=== PATIENT | female | born 1950 | race Caucasian/White ===

== ENCOUNTER 2016-07-11 12:20 | Inpatient (IN) | payer OTHER ==
[~2016-07-11] VITALS: Ht 165.1 cm; Wt 76.4 kg
[~2016-07-11 12:20] MED LIST: AVAPRO75 MG PO; CARTIA XT240 MG PO; COMPAZINE10 MG PO; DULERA 100 MCG/13 GM IH; FEMARA2.5 MG PO; LOTEMAX5 GM BOTH EYES; ONDANSETRON HCL8 MG PO; OXYCODONE-ACET1 EACH PO; PANTOPRAZOLE SO40 MG PO; PROVERA,CYCRIN10 MG PO; PYRIDIUM100 MG PO; SYNTHROID100 MCG PO; ZOLOFT100 MG PO
[2016-07-11 13:38] LABS: HEMATOCRIT 25.4 % (36.0-46.0); MCH 25.3 PG (29.0-34.0); MCHC 31.9 G/DL (30.0-36.0); MCV 79.4 FL (83-99); RBC DIS.WIDTH-CV 21.6 % (11.8-14.6); RBC DIS.WIDTH-SD 55.1 % (39-53)
[2016-07-11 13:49] LABS: D-DIMER ELISA 3.61 mg/L FEU (< 0.57)
[2016-07-11 13:50] LABS: CHLORIDE 105 mEq/L (99-109); POTASSIUM 3.7 mEq/L (3.7-5.4); SODIUM 139 mEq/L (136-147)
[2016-07-11 13:52] LABS: GLUCOSE 127 mg/dL (70-99)
[2016-07-11 13:53] LABS: ANION GAP 13 MEQ/L (2-14)
[2016-07-11 13:54] LABS: TOTAL BILIRUBIN 0.1 mg/dL (0.0-1.0)
[2016-07-11 13:55] LABS: ALKALINE PHOSPHATASE 117 IU/L (3-129)
[2016-07-11 13:56] LABS: GFR ESTIMATE (CALCULATED) 22 mL/min/
[2016-07-11 13:57] LABS: UREA NITROGEN (BUN) 33 mg/dL (9-23)
[2016-07-11 14:01] LABS: TROP-I INTERPRETATION NEGATIVE; TROPONIN-I 0.08 ng/mL (0.0-0.30)
[2016-07-11 14:04] LABS: WHITE BLOOD COUNT 14.9 K/uL (4.1-10.2)
[2016-07-11 14:07] LABS: BASOPHIL COUNT 0.1 K/uL (0-0.1); EOSINOPHIL (%) 0.1 % (0-5); IMMATURE GRANULOCYTE (%) 3.1 % (0.0-0.7); IMMATURE GRANULOCYTE COUNT 0.4 K/uL; LYMPHOCYTE COUNT 1.1 K/uL (1.0-2.8); MONOCYTE COUNT 1.5 K/uL (0-0.8); NEUTROPHIL (%) 77.1 % (45-76); NEUTROPHIL COUNT 10.6 K/uL (1.8-6.4); NRBC (%) 8.3 /100 WBC (0-0)
[2016-07-11 14:37] LABS: HEMATOLOGY COMMENT 1 SMEAR COMPATIBLE; MEAN PLAT.VOLUME 9.9 uM^3 (9.5-12.4); PLATELET CLUMPS PRESENT - PLATELET COUNT APPEARS INCREASED; USER ID TLW
[2016-07-11 14:55] LABS: PLATELET COUNT UNABLE TO REPORT K/uL (156-360)
[2016-07-11 16:54] LABS: INTER. NORMALIZED RATIO 1.2; PROTHROMBIN TIME 11.8 (9.2-11.2); PTT 28.7 (25-32)
[2016-07-11 18:16] VITALS: BP 101/54
[2016-07-11 21:00] VITALS: BP 108/59
[2016-07-11 21:49] LABS: INFLUENZA A VIRAL ANTIGEN NEGATIVE; INFLUENZA B VIRAL ANTIGEN NEGATIVE
[2016-07-11 23:58] VITALS: BP 104/56
[2016-07-12 05:00] VITALS: BP 128/66
[2016-07-12 06:50] LABS: HEMATOCRIT 23.9 % (36.0-46.0); MCH 25.2 PG (29.0-34.0); MCHC 31.4 G/DL (30.0-36.0); MCV 80.2 FL (83-99); RBC DIS.WIDTH-CV 21.9 % (11.8-14.6); RBC DIS.WIDTH-SD 59.9 % (39-53); RED BLOOD COUNT 2.98 M/uL (3.80-5.20); WHITE BLOOD COUNT 14.2 K/uL (4.1-10.2)
[2016-07-12 07:24] LABS: INTER. NORMALIZED RATIO 1.1; PROTHROMBIN TIME 11.7 (9.2-11.2); PTT 40.3 (25-32)
[2016-07-12 07:28] LABS: ANION GAP 11 MEQ/L (2-14); CHLORIDE 105 MEQ/L (99-109); GFR ESTIMATE (CALCULATED) 25 mL/min/; SAMPLE HEMOLYSIS CHECK 0; SAMPLE ICTERIC CHECK 0; SAMPLE LIPEMIA CHECK 0; SODIUM 140 MEQ/L (136-147); UREA NITROGEN (BUN) 33 mg/dL (9-23)
[2016-07-12 07:39] LABS: GLUCOSE 93 mg/dL (70-99); POTASSIUM 4.5 MEQ/L (3.7-5.4)
[2016-07-12 07:46] LABS: ADD MIUA? YES; BILIRUBIN NEGATIVE; BLOOD MODERATE; COLOR YELLOW ((YELLOW)); GLUCOSE (STRIP) NEGATIVE; KETONES NEGATIVE; LEUKOCYTES LARGE; NITRITE NEGATIVE; PROTEIN (STRIP) NEGATIVE; SPECIFIC GRAVITY 1.013 (1.000-1.030); UROBILINOGEN 0.2 MG/DL (0.2-1.0)
[2016-07-12 08:03] LABS: HEMATOLOGY COMMENT 1 SMEAR COMPATIBLE
[2016-07-12 08:04] LABS: PLATELET COUNT UNABLE TO REPORT K/uL (156-360)
[2016-07-12 08:22] VITALS: BP 136/67
[2016-07-12 08:35] LABS: BACTERIA 1+ /HPF; EPITHELIAL CELLS 1+ /HPF; MUCUS 2+ /LPF; RED BLOOD CELLS 20-30 /HPF (0-5); UCUL ADDED? YES; WHITE BLOOD CELLS TNTC /HPF (0-5); WHITE BLOOD CELLS CLUMP MANY /HPF (0-5)
[2016-07-12 11:42] VITALS: BP 116/58
[2016-07-12 17:44] VITALS: BP 124/63
[2016-07-12 20:21] VITALS: BP 120/67
[2016-07-12 23:35] VITALS: BP 128/70
[2016-07-13 04:10] VITALS: BP 121/74
[2016-07-13 08:18] LABS: HEMATOCRIT 25.2 % (36.0-46.0); MCH 24.6 PG (29.0-34.0); MCHC 30.2 G/DL (30.0-36.0); MCV 81.6 FL (83-99); RBC DIS.WIDTH-CV 22.6 % (11.8-14.6); RBC DIS.WIDTH-SD 61.7 % (39-53); RED BLOOD COUNT 3.09 M/uL (3.80-5.20); WHITE BLOOD COUNT 12.7 K/uL (4.1-10.2)
[2016-07-13 08:25] VITALS: BP 138/83
[2016-07-13 08:46] LABS: ANION GAP 9 MEQ/L (2-14); CHLORIDE 107 MEQ/L (99-109); GLUCOSE 88 mg/dL (70-99); SAMPLE HEMOLYSIS CHECK 1; SAMPLE ICTERIC CHECK 0; SAMPLE LIPEMIA CHECK 0; SODIUM 140 MEQ/L (136-147); UREA NITROGEN (BUN) 25 mg/dL (9-23)
[2016-07-13 08:49] LABS: GFR ESTIMATE (CALCULATED) 34 mL/min/; POTASSIUM 4.2 MEQ/L (3.7-5.4)
[2016-07-13 09:16] LABS: PLATELET COUNT UNABLE TO REPORT K/uL (156-360)
[2016-07-13 12:23] VITALS: BP 135/82
[2016-07-13 16:28] VITALS: BP 117/57
[2016-07-13 20:01] VITALS: BP 156/67
[2016-07-14] VITALS (7 sets, daily range): BP systolic 113–131; BP diastolic 56–69
[2016-07-14 06:54] LABS: HEMATOCRIT 23.8 % (36.0-46.0); MCH 24.2 PG (29.0-34.0); MCHC 30.3 G/DL (30.0-36.0); MCV 79.9 FL (83-99); RBC DIS.WIDTH-CV 23.2 % (11.8-14.6); RBC DIS.WIDTH-SD 61.6 % (39-53); RED BLOOD COUNT 2.98 M/uL (3.80-5.20); WHITE BLOOD COUNT 12.8 K/uL (4.1-10.2)
[2016-07-14 07:27] LABS: ANION GAP 10 MEQ/L (2-14); CHLORIDE 105 MEQ/L (99-109); GFR ESTIMATE (CALCULATED) 43 mL/min/; GLUCOSE 81 mg/dL (70-99); SAMPLE HEMOLYSIS CHECK 1; SAMPLE ICTERIC CHECK 0; SAMPLE LIPEMIA CHECK 0; SODIUM 138 MEQ/L (136-147); UREA NITROGEN (BUN) 22 mg/dL (9-23)
[2016-07-14 07:46] LABS: HEMATOLOGY COMMENT 1 REV
[2016-07-14 07:57] LABS: PLATELET COUNT 1101 K/uL (156-360)
[2016-07-14 08:07] LABS: POTASSIUM 4.4 MEQ/L (3.7-5.4)
[2016-07-14 08:44] LABS: HEMATOCRIT 23.5 % (36.0-46.0); MCH 25.4 PG (29.0-34.0); MCHC 31.1 G/DL (30.0-36.0); MCV 81.9 FL (83-99); RBC DIS.WIDTH-CV 22.8 % (11.8-14.6); RBC DIS.WIDTH-SD 64.3 % (39-53); RED BLOOD COUNT 2.87 M/uL (3.80-5.20)
[2016-07-14 09:03] LABS: INTER. NORMALIZED RATIO 1.3; PROTHROMBIN TIME 13.7 (9.2-11.2); PTT 33.7 (25-32)
[2016-07-14 09:08] LABS: TOTAL BILIRUBIN 0.3 MG/DL (0.0-1.0)
[2016-07-14 09:16] LABS: ADD MIUA? YES; BILIRUBIN NEGATIVE; BLOOD LARGE; COLOR YELLOW ((YELLOW)); GLUCOSE (STRIP) NEGATIVE; KETONES NEGATIVE; LEUKOCYTES LARGE; NITRITE NEGATIVE; PROTEIN (STRIP) 30; SPECIFIC GRAVITY 1.009 (1.000-1.030); UROBILINOGEN 0.2 MG/DL (0.2-1.0)
[2016-07-14 09:37] LABS: HEMATOLOGY COMMENT 1 REV
[2016-07-14 09:38] LABS: MEAN PLAT.VOLUME 9.7 uM^3 (9.5-12.4); PLATELET COUNT 1050 K/uL (156-360)
[2016-07-14 10:03] LABS: BACTERIA 1+ /HPF; EPITHELIAL CELLS NONE SEEN /HPF; MUCUS 1+ /LPF; RED BLOOD CELLS TNTC /HPF (0-5); WHITE BLOOD CELLS TNTC /HPF (0-5); WHITE BLOOD CELLS CLUMP MANY /HPF (0-5)
[2016-07-15 03:50] VITALS: BP 119/59
[2016-07-15 06:33] LABS: HEMATOCRIT 23.6 % (36.0-46.0); MCH 24.1 PG (29.0-34.0); MCHC 29.7 G/DL (30.0-36.0); MCV 81.4 FL (83-99); NRBC (%) 1.2 /100 WBC (0-0); RBC DIS.WIDTH-CV 22.8 % (11.8-14.6); WHITE BLOOD COUNT 11.7 K/uL (4.1-10.2)
[2016-07-15 07:11] LABS: ALKALINE PHOSPHATASE 94 IU/L (3-129); ANION GAP 7 MEQ/L (2-14); CHLORIDE 104 MEQ/L (99-109); GFR ESTIMATE (CALCULATED) 48 mL/min/; GLUCOSE 84 mg/dL (70-99); POTASSIUM 4.1 MEQ/L (3.7-5.4); SAMPLE HEMOLYSIS CHECK 0; SAMPLE ICTERIC CHECK 0; SAMPLE LIPEMIA CHECK 0; SODIUM 136 MEQ/L (136-147); UREA NITROGEN (BUN) 22 mg/dL (9-23)
[2016-07-15 07:13] LABS: TOTAL BILIRUBIN 0.2 MG/DL (0.0-1.0)
[2016-07-15 07:57] LABS: BASOPHIL COUNT 0.1 K/uL (0-0.1); EOSINOPHIL (%) 1.5 % (0-5); EOSINOPHIL COUNT 0.2 K/uL (0-0.3); HEMATOLOGY COMMENT 1 SMEAR COMPATIBLE; IMMATURE GRANULOCYTE (%) 2.1 % (0.0-0.7); IMMATURE GRANULOCYTE COUNT 0.2 K/uL; LYMPHOCYTE COUNT 1.9 K/uL (1.0-2.8); MEAN PLAT.VOLUME 9.8 uM^3 (9.5-12.4); MONOCYTE (%) 13.5 % (3-12); MONOCYTE COUNT 1.6 K/uL (0-0.8); NEUTROPHIL (%) 66.1 % (45-76); NEUTROPHIL COUNT 7.7 K/uL (1.8-6.4); PLAT.SUFFICIENCY INCREASED; USER ID MCB
[2016-07-15 07:58] LABS: PLATELET COUNT 1033 K/uL (156-360)
[2016-07-15 08:00] VITALS: BP 125/63
[2016-07-15 12:50] LABS: HEMATOCRIT 26.3 % (36.0-46.0); MCV 81.2 FL (83-99)
[2016-07-15 13:01] VITALS: BP 130/66
[2016-07-15 16:38] VITALS: BP 101/52
[2016-07-15 20:00] VITALS: BP 107/58
[2016-07-16] VITALS (14 sets, daily range): BP systolic 95–140; BP diastolic 50–74
[2016-07-16 06:46] LABS: HEMATOCRIT 23.5 % (36.0-46.0); MCH 24.6 PG (29.0-34.0); MCHC 30.2 G/DL (30.0-36.0); MCV 81.3 FL (83-99); RBC DIS.WIDTH-CV 23.3 % (11.8-14.6); RBC DIS.WIDTH-SD 64.9 % (39-53); RED BLOOD COUNT 2.89 M/uL (3.80-5.20); WHITE BLOOD COUNT 13.2 K/uL (4.1-10.2)
[2016-07-16 07:09] LABS: ANION GAP 9 MEQ/L (2-14); C-REACTIVE PROTEIN 52.6 MG/L (0-10); CHLORIDE 105 MEQ/L (99-109); GFR ESTIMATE (CALCULATED) 37 mL/min/; GLUCOSE 87 mg/dL (70-99); POTASSIUM 4.4 MEQ/L (3.7-5.4); SAMPLE HEMOLYSIS CHECK 0; SAMPLE ICTERIC CHECK 0; SAMPLE LIPEMIA CHECK 0; SODIUM 139 MEQ/L (136-147); UREA NITROGEN (BUN) 23 mg/dL (9-23)
[2016-07-16 08:05] LABS: ADD MIUA? YES; BILIRUBIN NEGATIVE; BLOOD LARGE; COLOR YELLOW ((YELLOW)); GLUCOSE (STRIP) NEGATIVE; KETONES NEGATIVE; LEUKOCYTES MODERATE; NITRITE NEGATIVE; PROTEIN (STRIP) 30; SPECIFIC GRAVITY 1.009 (1.000-1.030); UROBILINOGEN 0.2 MG/DL (0.2-1.0)
[2016-07-16 08:08] LABS: MEAN PLAT.VOLUME 9.6 uM^3 (9.5-12.4)
[2016-07-16 08:14] LABS: PLATELET COUNT 1008 K/uL (156-360)
[2016-07-16 09:03] LABS: BACTERIA 1+ /HPF; CASTS NONE SEEN /LPF; CRYSTALS NONE SEEN; EPITHELIAL CELLS RARE /HPF; MUCUS RARE /LPF; RED BLOOD CELLS TNTC /HPF (0-5); UCUL ADDED? NO; WHITE BLOOD CELLS 30-40 /HPF (0-5)
[2016-07-17 04:09] VITALS: BP 130/78
[2016-07-17 07:00] LABS: HEMATOCRIT 28.3 % (36.0-46.0); MCH 26.8 PG (29.0-34.0); MCHC 32.2 G/DL (30.0-36.0); MCV 83.5 FL (83-99); MEAN PLAT.VOLUME 9.7 uM^3 (9.5-12.4); PLATELET COUNT 845 K/uL (156-360); RBC DIS.WIDTH-SD 61.9 % (39-53); RED BLOOD COUNT 3.39 M/uL (3.80-5.20); WHITE BLOOD COUNT 13.9 K/uL (4.1-10.2)
[2016-07-17 07:10] VITALS: BP 126/66
[2016-07-17 07:20] LABS: ANION GAP 9 MEQ/L (2-14); CHLORIDE 106 MEQ/L (99-109); GFR ESTIMATE (CALCULATED) 40 mL/min/; GLUCOSE 88 mg/dL (70-99); POTASSIUM 4.2 MEQ/L (3.7-5.4); SAMPLE HEMOLYSIS CHECK 0; SAMPLE ICTERIC CHECK 0; SAMPLE LIPEMIA CHECK 0; SODIUM 141 MEQ/L (136-147); UREA NITROGEN (BUN) 19 mg/dL (9-23)
[2016-07-17 11:17] VITALS: BP 128/67
[2016-07-17 16:12] VITALS: BP 126/68
[2016-07-17 19:16] VITALS: BP 120/59
[2016-07-17 23:22] VITALS: BP 137/72
[2016-07-18 04:41] VITALS: BP 141/75
[2016-07-18 06:44] LABS: HEMATOCRIT 28.8 % (36.0-46.0); MCHC 30.9 G/DL (30.0-36.0); MCV 84.2 FL (83-99); MEAN PLAT.VOLUME 9.9 uM^3 (9.5-12.4); NRBC (%) 0.4 /100 WBC (0-0); PLATELET COUNT 893 K/uL (156-360); RBC DIS.WIDTH-CV 21.9 % (11.8-14.6); RBC DIS.WIDTH-SD 66.2 % (39-53); RED BLOOD COUNT 3.42 M/uL (3.80-5.20)
[2016-07-18 07:14] LABS: ANION GAP 10 MEQ/L (2-14); CHLORIDE 107 MEQ/L (99-109); GFR ESTIMATE (CALCULATED) 37 mL/min/; GLUCOSE 79 mg/dL (70-99); POTASSIUM 4.4 MEQ/L (3.7-5.4); SAMPLE HEMOLYSIS CHECK 0; SAMPLE ICTERIC CHECK 0; SAMPLE LIPEMIA CHECK 0; SODIUM 142 MEQ/L (136-147); UREA NITROGEN (BUN) 17 mg/dL (9-23)
[2016-07-18 07:15] VITALS: BP 146/76
[2016-07-18 07:34] LABS: BASOPHIL COUNT 0.1 K/uL (0-0.1); EOSINOPHIL (%) 2.7 % (0-5); EOSINOPHIL COUNT 0.4 K/uL (0-0.3); IMMATURE GRANULOCYTE (%) 0.8 % (0.0-0.7); IMMATURE GRANULOCYTE COUNT 0.1 K/uL; LYMPHOCYTE COUNT 2.1 K/uL (1.0-2.8); MONOCYTE (%) 12.6 % (3-12); MONOCYTE COUNT 1.6 K/uL (0-0.8); NEUTROPHIL (%) 66.8 % (45-76); NEUTROPHIL COUNT 8.7 K/uL (1.8-6.4)
[2016-07-18 08:10] LABS: HEMATOLOGY COMMENT 1 SMEAR COMPATIBLE; PLAT.SUFFICIENCY INCREASED; USER ID STC
[2016-07-18 11:43] VITALS: BP 139/84
[2016-07-18 16:06] VITALS: BP 140/75
[2016-07-18 19:30] VITALS: BP 120/59
[2016-07-18 23:30] VITALS: BP 138/71
[2016-07-19] VITALS (18 sets, daily range): BP systolic 65–140; BP diastolic 38–73
[2016-07-19 06:26] LABS: HEMATOCRIT 30.4 % (36.0-46.0); MCHC 31.6 G/DL (30.0-36.0); MCV 85.6 FL (83-99); PLATELET COUNT 850 K/uL (156-360); RBC DIS.WIDTH-CV 22.6 % (11.8-14.6); RBC DIS.WIDTH-SD 69.4 % (39-53); RED BLOOD COUNT 3.55 M/uL (3.80-5.20); WHITE BLOOD COUNT 12.1 K/uL (4.1-10.2)
[2016-07-19 12:54] LABS: C DIFF TOXIN NEGATIVE (NEGATIVE); PROBE CHECK PASS; SPECIMEN PROCESSING CONTROL PASS
[2016-07-19 16:54] LABS: HEMATOCRIT 24.3 % (36.0-46.0); MCV 86.5 FL (83-99)
[2016-07-19 17:08] LABS: TROP-I INTERPRETATION NEGATIVE; TROPONIN-I 0.02 ng/mL (0.0-0.30)
[2016-07-19 22:28] LABS: FIBRINOGEN 375 MG/DL (160-450); INTER. NORMALIZED RATIO 1.2; PROTHROMBIN TIME 12.3 (9.2-11.2); PTT 29.3 (25-32)
[2016-07-19 23:28] LABS: METH RESISTANT S AUREUS PCR NEGATIVE (NEGATIVE)
[2016-07-19 23:30] LABS: PROBE CHECK PASS; SPECIMEN PROCESSING CONTROL PASS
[2016-07-20] VITALS (25 sets, daily range): BP systolic 75–117; BP diastolic 44–94
[2016-07-20 06:49] LABS: FIBRINOGEN 437 MG/DL (160-450); INTER. NORMALIZED RATIO 1.1; PROTHROMBIN TIME 11.3 (9.2-11.2); PTT 28.7 (25-32)
[2016-07-20 06:59] LABS: ANION GAP 13 MEQ/L (2-14); CHLORIDE 106 MEQ/L (99-109); GFR ESTIMATE (CALCULATED) 22 mL/min/; POTASSIUM 4.6 MEQ/L (3.7-5.4); SAMPLE HEMOLYSIS CHECK 0; SAMPLE ICTERIC CHECK 0; SAMPLE LIPEMIA CHECK 0; SODIUM 140 MEQ/L (136-147)
[2016-07-20 07:01] LABS: GLUCOSE 165 mg/dL (70-99); UREA NITROGEN (BUN) 28 mg/dL (9-23)
[2016-07-20 08:21] LABS: EOSINOPHIL (%) 0 % (0-5); HEMATOLOGY COMMENT 1 SMEAR COMPATIBLE; IMMATURE GRANULOCYTE (%) 1.5 % (0.0-0.7); IMMATURE GRANULOCYTE COUNT 0.4 K/uL; MCH 28.1 PG (29.0-34.0); MCHC 32.6 G/DL (30.0-36.0); MEAN PLAT.VOLUME 10.4 uM^3 (9.5-12.4); MONOCYTE (%) 4.6 % (3-12); MONOCYTE COUNT 1.1 K/uL (0-0.8); NEUTROPHIL (%) 85.4 % (45-76); NEUTROPHIL COUNT 20.3 K/uL (1.8-6.4); NRBC (%) 0.3 /100 WBC (0-0); PLAT.SUFFICIENCY ADEQUATE; RBC DIS.WIDTH-CV 16.9 % (11.8-14.6); RBC DIS.WIDTH-SD 50.3 % (39-53); RED BLOOD COUNT 4.42 M/uL (3.80-5.20); WHITE BLOOD COUNT 23.8 K/uL (4.1-10.2)
[2016-07-26 11:55] LABS: POC NON-PRINT COM 1 ND
== END 2016-07-20 10:47 | disposition short-term general hospital (02) | DRG 175 ==
LOC: EME → EDBD 12:20 → EME 12:20 → 4WEST 17:10 → EDOF 17:10 → 4SOUTH 17:10 → 4EAST 07-14 14:59 → 4WEST 07-19 21:18
PROVIDERS: Emergency Medicine; Internal Medicine; Internal Medicine Hematology & Oncology; Internal Medicine Medical Oncology; Obstetrics & Gynecology; Physician Assistant; Student in an Organized Health Care Education/Training Program
PROC: 30233N1 Transfusion of Nonautologous Red Blood Cells into Peripheral Vein, Percutaneous Approach (ICD-10-PCS; principal; 2016-07-16)
PROC: 30233K1 Transfusion of Nonautologous Frozen Plasma into Peripheral Vein, Percutaneous Approach (ICD-10-PCS; 2016-07-20)
DX: I26.99 Other pulmonary embolism without acute cor pulmonale (principal); R57.8 Other shock; K66.1 Hemoperitoneum; M79.81 Nontraumatic hematoma of soft tissue; R31.9 Hematuria, unspecified; T45.515A Adverse effect of anticoagulants, initial encounter; I82.411 Acute embolism and thrombosis of right femoral vein; I82.811 Embolism and thrombosis of superficial veins of right lower extremity; N17.9 Acute kidney failure, unspecified; E87.2 Acidosis; C77.3 Secondary and unspecified malignant neoplasm of axilla and upper limb lymph nodes; C50.912 Malignant neoplasm of unspecified site of left female breast; C55 Malignant neoplasm of uterus, part unspecified; J18.9 Pneumonia, unspecified organism; N39.0 Urinary tract infection, site not specified; B96.5 Pseudomonas (aeruginosa) (mallei) (pseudomallei) as the cause of diseases classified elsewhere; J45.909 Unspecified asthma, uncomplicated; E03.9 Hypothyroidism, unspecified; F32.9 Major depressive disorder, single episode, unspecified; I12.9 Hypertensive chronic kidney disease with stage 1 through stage 4 chronic kidney disease, or unspecified chronic kidney disease; N18.1 Chronic kidney disease, stage 1; D64.9 Anemia, unspecified; D47.3 Essential (hemorrhagic) thrombocythemia; Z85.71 Personal history of Hodgkin lymphoma; Z91.041 Radiographic dye allergy status
CPT/HCPCS: 71010; 71020; 71250; 74176; 76770; 78582; 80048; 80053; 81003; 82247; 82272; 82570; 82728; 83605; 83615; 83880; 84145 90; 84300; 84484; 85014; 85018; 85025; 85025 91; 85027; 85379; 85384; 85610; 85730; 86140; 86850; 86900; 86901; 86920; 87040; 87070; 87077; 87086; 87186; 87205; 87493; 87502; 87641; 93005; 93306; 93970; 93971; 94640; 94640 76; 94760; 94799; 97530 GO; 99281; 99285; A9540; A9567; C9113; G0463 25; J0456; J0696; J1170; J1650; J1940; J2270; J2405; J2543; J7030; J7040; J7050; J7120; P9016; P9017; P9045

== ENCOUNTER 2016-08-08 15:29 | Emergency (ER) | payer OTHER ==
[~2016-08-08] VITALS: Ht 165.1 cm; Wt 96.0 kg
[2016-08-08 19:39] LABS: HEMATOCRIT 33.8 % (36.0-46.0); MCH 31.9 PG (29.0-34.0); MCHC 31.7 G/DL (30.0-36.0); RBC DIS.WIDTH-CV 21.8 % (11.8-14.6); RBC DIS.WIDTH-SD 79.7 % (39-53)
[2016-08-08 19:41] LABS: EOSINOPHIL (%) 3.7 % (0-5); EOSINOPHIL COUNT 0.3 K/uL (0-0.3); IMMATURE GRANULOCYTE (%) 0.4 % (0.0-0.7); INSTRUMENT ABS NEUTROPHIL CT 4.6 K/uL; LYMPHOCYTE COUNT 3.5 K/uL (1.0-2.8); MCV 100.9 FL (83-99); MONOCYTE COUNT 0.7 K/uL (0-0.8); NEUTROPHIL (%) 50.1 % (45-76); NEUTROPHIL COUNT 4.6 K/uL (1.8-6.4); RED BLOOD COUNT 3.35 M/uL (3.80-5.20); WHITE BLOOD COUNT 9.2 K/uL (4.1-10.2)
[2016-08-08 19:52] LABS: INTER. NORMALIZED RATIO 1.1; PROTHROMBIN TIME 10.7 (9.2-11.2); PTT 28.9 (25-32)
[2016-08-08 19:53] LABS: CHLORIDE 102 mEq/L (99-109); POTASSIUM 3.8 mEq/L (3.7-5.4); SODIUM 136 mEq/L (136-147)
[2016-08-08 19:55] LABS: GLUCOSE 93 mg/dL (70-99)
[2016-08-08 19:57] LABS: ANION GAP 13 MEQ/L (2-14); TOTAL BILIRUBIN 0.9 mg/dL (0.0-1.0)
[2016-08-08 19:59] LABS: ALKALINE PHOSPHATASE 121 IU/L (3-129); GFR ESTIMATE (CALCULATED) 48 mL/min/
[2016-08-08 20:00] LABS: UREA NITROGEN (BUN) 14 mg/dL (9-23)
[2016-08-08 20:28] LABS: PLATELET COUNT 466 K/uL (156-360)
[2016-08-08 21:55] LABS: ADD MIUA? YES; BILIRUBIN NEGATIVE; BLOOD LARGE; COLOR YELLOW ((YELLOW)); GLUCOSE (STRIP) NEGATIVE; KETONES NEGATIVE; LEUKOCYTES MODERATE; NITRITE NEGATIVE; PROTEIN (STRIP) 100; UROBILINOGEN 0.2 MG/DL (0.2-1.0)
[2016-08-08 21:56] LABS: BACTERIA 1+ /HPF; EPITHELIAL CELLS 1+ /HPF; MUCUS NONE SEEN /LPF; RED BLOOD CELLS TNTC /HPF (0-5); UCUL ADDED? NO
[2016-08-09] MEDS ORDERED: KEFLEX500 MG PO (00:13)
[2016-08-09 01:29] VITALS: BP 131/77
== END 2016-08-09 01:32 | disposition home or self-care (01) ==
LOC: EME 15:29
PROVIDERS: Emergency Medicine
DX: N99.520 Hemorrhage of incontinent external stoma of urinary tract (principal); N94.89 Other specified conditions associated with female genital organs and menstrual cycle; I10 Essential (primary) hypertension
CPT/HCPCS: 74176; 80053; 81003; 85025; 85610; 85730; 86850; 86900; 86901; 87077; 87086; 87186; 99281; 99285; J0696; J7030; J7050

== ENCOUNTER 2016-08-12 17:37 | Inpatient (IN) | payer OTHER ==
[~2016-08-12] VITALS: Ht 165.1 cm; Wt 81.9 kg
[~2016-08-12 17:37] MED LIST changes: +KEFLEX500 MG PO
[2016-08-12 19:50] LABS: CHLORIDE 103 mEq/L (99-109); POTASSIUM 4.2 mEq/L (3.7-5.4); SODIUM 136 mEq/L (136-147)
[2016-08-12 19:52] LABS: GLUCOSE 100 mg/dL (70-99)
[2016-08-12 19:53] LABS: ANION GAP 11 MEQ/L (2-14); INTER. NORMALIZED RATIO 1.1; PROTHROMBIN TIME 10.7 (9.2-11.2); PTT 28.5 (25-32)
[2016-08-12 19:56] LABS: GFR ESTIMATE (CALCULATED) 53 mL/min/; UREA NITROGEN (BUN) 15 mg/dL (9-23)
[2016-08-12 20:07] LABS: EOSINOPHIL (%) 2.7 % (0-5); EOSINOPHIL COUNT 0.2 K/uL (0-0.3); HEMATOCRIT 36.6 % (36.0-46.0); IMMATURE GRANULOCYTE (%) 0.4 % (0.0-0.7); INSTRUMENT ABS NEUTROPHIL CT 3.8 K/uL; LYMPHOCYTE COUNT 3.7 K/uL (1.0-2.8); MCH 32.3 PG (29.0-34.0); MCHC 31.1 G/DL (30.0-36.0); MCV 103.7 FL (83-99); MONOCYTE (%) 9.1 % (3-12); MONOCYTE COUNT 0.8 K/uL (0-0.8); NEUTROPHIL (%) 43.9 % (45-76); NEUTROPHIL COUNT 3.8 K/uL (1.8-6.4); RBC DIS.WIDTH-CV 21.2 % (11.8-14.6); RBC DIS.WIDTH-SD 81.7 % (39-53); RED BLOOD COUNT 3.53 M/uL (3.80-5.20); WHITE BLOOD COUNT 8.5 K/uL (4.1-10.2)
[2016-08-12 20:38] LABS: MEAN PLAT.VOLUME 10.9 uM^3 (9.5-12.4); PLAT.SUFFICIENCY ADEQUATE; PLATELET COUNT 178 K/uL (156-360)
[2016-08-12 20:46] LABS: ADD MIUA? YES; SPECIFIC GRAVITY 1.024 (1.000-1.030)
[2016-08-12 20:47] LABS: EPITHELIAL CELLS NONE SEEN /HPF; MUCUS NONE SEEN /LPF; RED BLOOD CELLS TNTC /HPF (0-5); WHITE BLOOD CELLS 15-20 /HPF (0-5)
[2016-08-12 20:48] LABS: UCUL ADDED? YES
[2016-08-12 21:18] LABS: ALKALINE PHOSPHATASE 138 IU/L (3-129)
[2016-08-12 21:20] LABS: TOTAL BILIRUBIN 0.7 mg/dL (0.0-1.0)
[2016-08-12 21:21] LABS: DIRECT BILIRUBIN 0.2 mg/dL (0.0-0.3)
[2016-08-12] MEDS ORDERED: CARDIZEM60 MG PO (21:56)
[2016-08-12] MEDS ORDERED: LOTEMAX5 ML BOTH EYES (21:57)
[2016-08-12] MEDS ORDERED: LOVENOX100 MG/1 M SC (21:57)
[2016-08-12] MEDS ORDERED: KEFLEX500 MG PO (21:59)
[2016-08-12] MEDS ORDERED: DULCOLAX10 MG PR (22:00)
[2016-08-12] MEDS ORDERED: FLEET ENEMA-AD118 ML PR (22:00)
[2016-08-12] MEDS ORDERED: ONDANSETRON HCL4 MG PO (22:01)
[2016-08-12] MEDS ORDERED: TYLENOL REGULA325 MG PO (22:01)
[2016-08-12] MEDS ORDERED: ROXICODONE5 MG PO (22:02)
[2016-08-12] MEDS ORDERED: TYLENOL EXTRA500 MG PO (22:02)
[2016-08-13 02:05] VITALS: BP 136/68
[2016-08-13 06:51] LABS: HEMATOCRIT 32.6 % (36.0-46.0); MCH 32.2 PG (29.0-34.0); MCV 103.8 FL (83-99); MEAN PLAT.VOLUME 10.5 uM^3 (9.5-12.4); PLATELET COUNT 391 K/uL (156-360); RBC DIS.WIDTH-CV 21.2 % (11.8-14.6); RBC DIS.WIDTH-SD 80.3 % (39-53); RED BLOOD COUNT 3.14 M/uL (3.80-5.20); WHITE BLOOD COUNT 10.3 K/uL (4.1-10.2)
[2016-08-13 06:53] VITALS: BP 138/83
[2016-08-13 08:10] LABS: BASOPHIL COUNT 0.1 K/uL (0-0.1); EOSINOPHIL (%) 2.1 % (0-5); EOSINOPHIL COUNT 0.2 K/uL (0-0.3); IMMATURE GRANULOCYTE (%) 0.5 % (0.0-0.7); IMMATURE GRANULOCYTE COUNT 0.1 K/uL; INSTRUMENT ABS NEUTROPHIL CT 4.6 K/uL; LYMPHOCYTE COUNT 4.2 K/uL (1.0-2.8); MONOCYTE (%) 10.7 % (3-12); MONOCYTE COUNT 1.1 K/uL (0-0.8); NEUTROPHIL (%) 44.9 % (45-76); NEUTROPHIL COUNT 4.6 K/uL (1.8-6.4)
[2016-08-13 08:19] LABS: ANION GAP 8 MEQ/L (2-14); CHLORIDE 103 MEQ/L (99-109); GFR ESTIMATE (CALCULATED) 48 mL/min/; GLUCOSE 80 mg/dL (70-99); POTASSIUM 3.9 MEQ/L (3.7-5.4); SAMPLE HEMOLYSIS CHECK 0; SAMPLE ICTERIC CHECK 0; SAMPLE LIPEMIA CHECK 0; SODIUM 137 MEQ/L (136-147); UREA NITROGEN (BUN) 15 mg/dL (9-23)
[2016-08-13 11:25] VITALS: BP 132/74
[2016-08-13 15:44] VITALS: BP 141/75
[2016-08-13 19:14] VITALS: BP 139/81
[2016-08-13 23:24] VITALS: BP 137/67
[2016-08-14 03:25] VITALS: BP 135/75
[2016-08-14 08:30] VITALS: BP 138/73
[2016-08-14 13:35] VITALS: BP 134/65
[2016-08-14 17:15] VITALS: BP 140/68
[2016-08-14 20:30] VITALS: BP 165/75
[2016-08-15] VITALS (7 sets, daily range): BP systolic 117–137; BP diastolic 57–68
[2016-08-16 03:34] VITALS: BP 129/58
[2016-08-16 07:28] LABS: HEMATOCRIT 34.7 % (36.0-46.0); MCHC 30.5 G/DL (30.0-36.0); MCV 104.8 FL (83-99); MEAN PLAT.VOLUME 10.3 uM^3 (9.5-12.4); PLATELET COUNT 293 K/uL (156-360); RBC DIS.WIDTH-CV 19.2 % (11.8-14.6); RBC DIS.WIDTH-SD 74.8 % (39-53); RED BLOOD COUNT 3.31 M/uL (3.80-5.20); WHITE BLOOD COUNT 9.4 K/uL (4.1-10.2)
[2016-08-16 07:38] VITALS: BP 141/77
[2016-08-16 11:53] VITALS: BP 135/70
[2016-08-16 16:50] VITALS: BP 139/67
[2016-08-16 19:40] VITALS: BP 139/69
[2016-08-16 23:42] VITALS: BP 136/66
[2016-08-17 03:31] VITALS: BP 132/70
[2016-08-17 06:38] VITALS: BP 137/72
[2016-08-17 11:02] VITALS: BP 124/66
[2016-08-17 16:47] VITALS: BP 134/70
[2016-08-17 19:38] VITALS: BP 135/65
[2016-08-17 19:58] LABS: HEMATOCRIT 34.3 % (36.0-46.0); MCV 104.6 FL (83-99)
[2016-08-17] MEDS ORDERED: FENTANYL1 EAC4 TD (20:09)
[2016-08-17 23:08] VITALS: BP 140/70
[2016-08-18 03:40] VITALS: BP 129/69
[2016-08-18 06:48] VITALS: BP 145/71
[2016-08-18 07:54] LABS: HEMATOCRIT 36.7 % (36.0-46.0); MCH 31.5 PG (29.0-34.0); MCHC 30.5 G/DL (30.0-36.0); MCV 103.4 FL (83-99); MEAN PLAT.VOLUME 10.2 uM^3 (9.5-12.4); PLATELET COUNT 312 K/uL (156-360); RBC DIS.WIDTH-CV 18.7 % (11.8-14.6); RBC DIS.WIDTH-SD 71.6 % (39-53); RED BLOOD COUNT 3.55 M/uL (3.80-5.20); WHITE BLOOD COUNT 7.9 K/uL (4.1-10.2)
[2016-08-18 07:56] LABS: HEMATOCRIT 37.2 % (36.0-46.0); MCV 103.9 FL (83-99)
[2016-08-18 08:24] LABS: ANION GAP 8 MEQ/L (2-14); CHLORIDE 106 MEQ/L (99-109); GFR ESTIMATE (CALCULATED) 59 mL/min/; GLUCOSE 83 mg/dL (70-99); POTASSIUM 4.4 MEQ/L (3.7-5.4); SAMPLE HEMOLYSIS CHECK 0; SAMPLE ICTERIC CHECK 0; SAMPLE LIPEMIA CHECK 0; SODIUM 137 MEQ/L (136-147); UREA NITROGEN (BUN) 15 mg/dL (9-23)
[2016-08-18 10:47] VITALS: BP 123/68
[2016-08-18 15:30] VITALS: BP 129/73
[2016-08-18 20:15] VITALS: BP 129/79
[2016-08-19] VITALS (7 sets, daily range): BP systolic 119–138; BP diastolic 59–71
[2016-08-19 06:54] LABS: HEMATOCRIT 35.6 % (36.0-46.0); MCH 31.8 PG (29.0-34.0); MCHC 30.6 G/DL (30.0-36.0); MCV 103.8 FL (83-99); MEAN PLAT.VOLUME 10.4 uM^3 (9.5-12.4); PLATELET COUNT 337 K/uL (156-360); RBC DIS.WIDTH-CV 18.6 % (11.8-14.6); RBC DIS.WIDTH-SD 72.2 % (39-53); RED BLOOD COUNT 3.43 M/uL (3.80-5.20); WHITE BLOOD COUNT 8.7 K/uL (4.1-10.2)
[2016-08-19 09:17] LABS: HEMATOCRIT 37.1 % (36.0-46.0); MCV 103.3 FL (83-99)
[2016-08-19 20:09] LABS: HEMATOCRIT 36.7 % (36.0-46.0); MCV 103.1 FL (83-99)
[2016-08-20 03:39] VITALS: BP 138/72
[2016-08-20 08:13] VITALS: BP 113/69
[2016-08-20 08:34] LABS: ANION GAP 4 MEQ/L (2-14); CHLORIDE 104 MEQ/L (99-109); GFR ESTIMATE (CALCULATED) 53 mL/min/; GLUCOSE 89 mg/dL (70-99); POTASSIUM 4.5 MEQ/L (3.7-5.4); SAMPLE HEMOLYSIS CHECK 0; SAMPLE ICTERIC CHECK 0; SAMPLE LIPEMIA CHECK 0; SODIUM 138 MEQ/L (136-147); UREA NITROGEN (BUN) 17 mg/dL (9-23)
[2016-08-20 13:05] VITALS: BP 116/59
[2016-08-20 16:54] VITALS: BP 127/62
[2016-08-20 20:00] VITALS: BP 140/68
[2016-08-21 00:26] VITALS: BP 128/62
[2016-08-21 04:29] VITALS: BP 129/59
[2016-08-21 07:20] VITALS: BP 127/63
[2016-08-21 07:33] LABS: HEMATOCRIT 36.6 % (36.0-46.0); MCH 32.1 PG (29.0-34.0); MCHC 31.4 G/DL (30.0-36.0); MCV 102.2 FL (83-99); MEAN PLAT.VOLUME 10.8 uM^3 (9.5-12.4); NRBC (%) 0.2 /100 WBC (0-0); PLATELET COUNT 354 K/uL (156-360); RBC DIS.WIDTH-CV 18.6 % (11.8-14.6); RBC DIS.WIDTH-SD 70.3 % (39-53); RED BLOOD COUNT 3.58 M/uL (3.80-5.20); WHITE BLOOD COUNT 9.5 K/uL (4.1-10.2)
[2016-08-21 12:05] VITALS: BP 142/65
[2016-08-21 16:20] VITALS: BP 139/67
[2016-08-21 19:49] LABS: HEMATOCRIT 35.6 % (36.0-46.0); MCV 104.1 FL (83-99)
[2016-08-21 20:22] VITALS: BP 131/65
[2016-08-22] VITALS (7 sets, daily range): BP systolic 117–132; BP diastolic 58–63
[2016-08-22 07:49] LABS: BASOPHIL COUNT 0.1 K/uL (0-0.1); EOSINOPHIL (%) 2.4 % (0-5); EOSINOPHIL COUNT 0.2 K/uL (0-0.3); HEMATOCRIT 33.7 % (36.0-46.0); HEMATOCRIT 33.8 % (36.0-46.0); IMMATURE GRANULOCYTE (%) 0.7 % (0.0-0.7); IMMATURE GRANULOCYTE COUNT 0.1 K/uL; INSTRUMENT ABS NEUTROPHIL CT 4.1 K/uL; LYMPHOCYTE COUNT 4.6 K/uL (1.0-2.8); MCH 32.1 PG (29.0-34.0); MCHC 30.8 G/DL (30.0-36.0); MCV 104.3 FL (83-99); MEAN PLAT.VOLUME 10.2 uM^3 (9.5-12.4); MONOCYTE (%) 9.4 % (3-12); MONOCYTE COUNT 0.9 K/uL (0-0.8); NEUTROPHIL (%) 40.9 % (45-76); NEUTROPHIL COUNT 4.1 K/uL (1.8-6.4); PLATELET COUNT 389 K/uL (156-360); RBC DIS.WIDTH-CV 18.6 % (11.8-14.6); RBC DIS.WIDTH-SD 72.2 % (39-53); RED BLOOD COUNT 3.24 M/uL (3.80-5.20); WHITE BLOOD COUNT 10.1 K/uL (4.1-10.2)
[2016-08-22 08:21] LABS: ALKALINE PHOSPHATASE 76 IU/L (3-129); ANION GAP 6 MEQ/L (2-14); CHLORIDE 102 MEQ/L (99-109); GFR ESTIMATE (CALCULATED) 43 mL/min/; GLUCOSE 84 mg/dL (70-99); POTASSIUM 4.7 MEQ/L (3.7-5.4); SAMPLE HEMOLYSIS CHECK 0; SAMPLE ICTERIC CHECK 0; SAMPLE LIPEMIA CHECK 0; SODIUM 136 MEQ/L (136-147); TOTAL BILIRUBIN 0.3 MG/DL (0.0-1.0); UREA NITROGEN (BUN) 22 mg/dL (9-23)
[2016-08-22 20:21] LABS: HEMATOCRIT 35.2 % (36.0-46.0); MCV 102.9 FL (83-99)
[2016-08-23 03:50] VITALS: BP 114/56
[2016-08-23 07:42] LABS: BASOPHIL COUNT 0.1 K/uL (0-0.1); EOSINOPHIL (%) 2.7 % (0-5); EOSINOPHIL COUNT 0.3 K/uL (0-0.3); HEMATOCRIT 33.4 % (36.0-46.0); IMMATURE GRANULOCYTE (%) 0.8 % (0.0-0.7); IMMATURE GRANULOCYTE COUNT 0.1 K/uL; INSTRUMENT ABS NEUTROPHIL CT 4.6 K/uL; LYMPHOCYTE COUNT 4.5 K/uL (1.0-2.8); MCH 31.7 PG (29.0-34.0); MCHC 30.8 G/DL (30.0-36.0); MCV 102.8 FL (83-99); MEAN PLAT.VOLUME 10.6 uM^3 (9.5-12.4); MONOCYTE (%) 8.8 % (3-12); MONOCYTE COUNT 0.9 K/uL (0-0.8); NEUTROPHIL (%) 43.8 % (45-76); NEUTROPHIL COUNT 4.6 K/uL (1.8-6.4); PLATELET COUNT 418 K/uL (156-360); RBC DIS.WIDTH-CV 18.7 % (11.8-14.6); RBC DIS.WIDTH-SD 71.6 % (39-53); RED BLOOD COUNT 3.25 M/uL (3.80-5.20); WHITE BLOOD COUNT 10.4 K/uL (4.1-10.2)
[2016-08-23 08:10] LABS: ALKALINE PHOSPHATASE 76 IU/L (3-129); ANION GAP 5 MEQ/L (2-14); CHLORIDE 100 MEQ/L (99-109); GFR ESTIMATE (CALCULATED) 43 mL/min/; GLUCOSE 87 mg/dL (70-99); SAMPLE HEMOLYSIS CHECK 2; SAMPLE ICTERIC CHECK 0; SAMPLE LIPEMIA CHECK 0; SODIUM 135 MEQ/L (136-147); TOTAL BILIRUBIN 0.4 MG/DL (0.0-1.0); UREA NITROGEN (BUN) 24 mg/dL (9-23)
[2016-08-23 08:11] LABS: POTASSIUM ND MEQ/L (3.7-5.4)
[2016-08-23 08:52] VITALS: BP 110/64
[2016-08-23 10:06] LABS: POTASSIUM 4.7 MEQ/L (3.7-5.4)
[2016-08-23 10:11] LABS: NO-CHARGE AST (GOT) 31 IU/L (15-37)
[2016-08-23 12:39] VITALS: BP 124/66
[2016-08-23 17:20] VITALS: BP 130/61
[2016-08-23 19:28] VITALS: BP 120/59
[2016-08-23 19:47] LABS: HEMATOCRIT 32.2 % (36.0-46.0); MCV 103.5 FL (83-99)
[2016-08-23 23:23] VITALS: BP 130/65
[2016-08-24 03:07] VITALS: BP 110/54
[2016-08-24 06:39] LABS: IMM.RETIC FRACTION 20.8 % (3-19); RETIC HGB EQUIVALENT 34.5 (28-36)
[2016-08-24 07:58] VITALS: BP 128/63
[2016-08-24 08:17] LABS: HEMATOCRIT 34.2 % (36.0-46.0); MCV 103.3 FL (83-99)
[2016-08-24 11:08] VITALS: BP 134/63
[2016-08-24 16:22] VITALS: BP 107/51
[2016-08-24 20:00] VITALS: BP 116/56
[2016-08-24 21:14] LABS: MCV 103.9 FL (83-99)
[2016-08-25] VITALS (7 sets, daily range): BP systolic 110–134; BP diastolic 54–71
[2016-08-25 07:15] LABS: EOSINOPHIL (%) 3.1 % (0-5); EOSINOPHIL COUNT 0.3 K/uL (0-0.3); HEMATOCRIT 33.9 % (36.0-46.0); IMMATURE GRANULOCYTE (%) 0.5 % (0.0-0.7); IMMATURE GRANULOCYTE COUNT 0.1 K/uL; INSTRUMENT ABS NEUTROPHIL CT 4.6 K/uL; LYMPHOCYTE COUNT 4.8 K/uL (1.0-2.8); MCH 31.7 PG (29.0-34.0); MCHC 30.7 G/DL (30.0-36.0); MCV 103.4 FL (83-99); MEAN PLAT.VOLUME 10.2 uM^3 (9.5-12.4); MONOCYTE (%) 9.3 % (3-12); NEUTROPHIL (%) 42.3 % (45-76); NEUTROPHIL COUNT 4.6 K/uL (1.8-6.4); PLATELET COUNT 458 K/uL (156-360); RBC DIS.WIDTH-CV 18.3 % (11.8-14.6); RBC DIS.WIDTH-SD 69.7 % (39-53); RED BLOOD COUNT 3.28 M/uL (3.80-5.20); WHITE BLOOD COUNT 10.8 K/uL (4.1-10.2)
[2016-08-25 07:16] LABS: HEMATOCRIT 33.5 % (36.0-46.0); MCV 103.4 FL (83-99)
[2016-08-25 07:27] LABS: ALKALINE PHOSPHATASE 86 IU/L (3-129); ANION GAP 6 MEQ/L (2-14); CHLORIDE 99 MEQ/L (99-109); GFR ESTIMATE (CALCULATED) 48 mL/min/; GLUCOSE 83 mg/dL (70-99); POTASSIUM 4.9 MEQ/L (3.7-5.4); SAMPLE HEMOLYSIS CHECK 0; SAMPLE ICTERIC CHECK 0; SAMPLE LIPEMIA CHECK 0; SODIUM 134 MEQ/L (136-147); UREA NITROGEN (BUN) 24 mg/dL (9-23)
[2016-08-25 07:28] LABS: TOTAL BILIRUBIN 0.3 MG/DL (0.0-1.0)
[2016-08-25 20:53] LABS: HEMATOCRIT 34.7 % (36.0-46.0); MCV 103.6 FL (83-99)
[2016-08-26 04:33] VITALS: BP 112/56
[2016-08-26 07:48] LABS: HEMATOCRIT 33.4 % (36.0-46.0); MCV 103.4 FL (83-99)
[2016-08-26 08:00] VITALS: BP 121/66
[2016-08-26 12:41] VITALS: BP 137/65
[2016-08-26 16:00] VITALS: BP 142/71
[2016-08-26 19:55] VITALS: BP 170/78
[2016-08-26 19:56] LABS: HEMATOCRIT 32.3 % (36.0-46.0); MCV 103.2 FL (83-99)
[2016-08-26 20:25] VITALS: BP 113/59
[2016-08-27] VITALS (7 sets, daily range): BP systolic 111–148; BP diastolic 58–67
[2016-08-27 08:08] LABS: HEMATOCRIT 34.9 % (36.0-46.0); MCV 102.9 FL (83-99)
[2016-08-27 20:04] LABS: HEMATOCRIT 33.1 % (36.0-46.0); MCV 102.5 FL (83-99)
[2016-08-28 03:18] VITALS: BP 116/60
[2016-08-28 05:42] LABS: BASOPHIL COUNT 0.1 K/uL (0-0.1); EOSINOPHIL (%) 1.9 % (0-5); EOSINOPHIL COUNT 0.2 K/uL (0-0.3); HEMATOCRIT 32.4 % (36.0-46.0); IMMATURE GRANULOCYTE (%) 0.3 % (0.0-0.7); INSTRUMENT ABS NEUTROPHIL CT 5.8 K/uL; LYMPHOCYTE COUNT 4.7 K/uL (1.0-2.8); MCH 32.1 PG (29.0-34.0); MCHC 31.5 G/DL (30.0-36.0); MCV 101.9 FL (83-99); MEAN PLAT.VOLUME 10.2 uM^3 (9.5-12.4); MONOCYTE (%) 9.9 % (3-12); MONOCYTE COUNT 1.2 K/uL (0-0.8); NEUTROPHIL (%) 48.3 % (45-76); NEUTROPHIL COUNT 5.8 K/uL (1.8-6.4); PLATELET COUNT 489 K/uL (156-360); RBC DIS.WIDTH-CV 17.5 % (11.8-14.6); RBC DIS.WIDTH-SD 65.8 % (39-53); RED BLOOD COUNT 3.18 M/uL (3.80-5.20)
[2016-08-28 06:52] LABS: ANION GAP 6 MEQ/L (2-14); CHLORIDE 102 MEQ/L (99-109); GFR ESTIMATE (CALCULATED) 43 mL/min/; GLUCOSE 85 mg/dL (70-99); MAGNESIUM 1.9 mg/dl (1.3-2.7); POTASSIUM 4.7 MEQ/L (3.7-5.4); SAMPLE HEMOLYSIS CHECK 0; SAMPLE ICTERIC CHECK 0; SAMPLE LIPEMIA CHECK 0; SODIUM 135 MEQ/L (136-147); UREA NITROGEN (BUN) 25 mg/dL (9-23)
[2016-08-28 08:14] VITALS: BP 119/63
[2016-08-28 12:29] VITALS: BP 118/64
[2016-08-28 17:13] VITALS: BP 121/66
[2016-08-28 22:04] LABS: HEMATOCRIT 32.6 % (36.0-46.0); MCV 100.9 FL (83-99)
[2016-08-29 00:06] VITALS: BP 128/66
[2016-08-29 08:00] VITALS: BP 106/56
[2016-08-29 10:05] LABS: HEMATOCRIT 35.6 % (36.0-46.0); MCV 101.7 FL (83-99)
[2016-08-29 13:00] VITALS: BP 157/74
[2016-08-29 14:52] LABS: ANION GAP 9 MEQ/L (2-14); CHLORIDE 99 MEQ/L (99-109); GFR ESTIMATE (CALCULATED) 53 mL/min/; POTASSIUM 4.3 MEQ/L (3.7-5.4); SAMPLE HEMOLYSIS CHECK 0; SAMPLE ICTERIC CHECK 0; SAMPLE LIPEMIA CHECK 0; SODIUM 131 MEQ/L (136-147); UREA NITROGEN (BUN) 22 mg/dL (9-23)
[2016-08-29 14:53] LABS: GLUCOSE 144 mg/dL (70-99)
[2016-08-29 16:00] VITALS: BP 139/71
[2016-08-29 22:10] VITALS: BP 135/65
[2016-08-29 23:53] VITALS: BP 140/76
[2016-08-30 03:53] VITALS: BP 158/83
[2016-08-30 07:17] LABS: HEMATOCRIT 33.6 % (36.0-46.0); MCH 31.3 PG (29.0-34.0); MCV 101.2 FL (83-99); PLATELET COUNT 535 K/uL (156-360); RBC DIS.WIDTH-CV 16.2 % (11.8-14.6); RBC DIS.WIDTH-SD 60.6 % (39-53); RED BLOOD COUNT 3.32 M/uL (3.80-5.20); WHITE BLOOD COUNT 12.3 K/uL (4.1-10.2)
[2016-08-30 07:36] LABS: ANION GAP 8 MEQ/L (2-14); CHLORIDE 99 MEQ/L (99-109); GFR ESTIMATE (CALCULATED) 53 mL/min/; GLUCOSE 106 mg/dL (70-99); POTASSIUM 4.9 MEQ/L (3.7-5.4); SAMPLE HEMOLYSIS CHECK 0; SAMPLE ICTERIC CHECK 0; SAMPLE LIPEMIA CHECK 0; SODIUM 132 MEQ/L (136-147); UREA NITROGEN (BUN) 23 mg/dL (9-23)
[2016-08-30 08:10] VITALS: BP 142/80
[2016-08-30 13:16] VITALS: BP 142/80
[2016-08-30 16:31] VITALS: BP 125/75
[2016-08-30 19:46] VITALS: BP 122/63
[2016-08-30 20:01] LABS: HEMATOCRIT 33.6 % (36.0-46.0); MCV 100.9 FL (83-99)
[2016-08-30 23:07] VITALS: BP 142/79
[2016-08-31 03:04] VITALS: BP 124/72
[2016-08-31 07:04] LABS: MCH 31.5 PG (29.0-34.0); MCHC 31.2 G/DL (30.0-36.0); MCV 101.2 FL (83-99); MEAN PLAT.VOLUME 10.1 uM^3 (9.5-12.4); PLATELET COUNT 500 K/uL (156-360); RBC DIS.WIDTH-CV 16.4 % (11.8-14.6); RBC DIS.WIDTH-SD 61.1 % (39-53); RED BLOOD COUNT 3.36 M/uL (3.80-5.20); WHITE BLOOD COUNT 11.1 K/uL (4.1-10.2)
[2016-08-31 07:14] LABS: ANION GAP 7 MEQ/L (2-14); CHLORIDE 100 MEQ/L (99-109); GFR ESTIMATE (CALCULATED) 59 mL/min/; GLUCOSE 77 mg/dL (70-99); SAMPLE HEMOLYSIS CHECK 1; SAMPLE ICTERIC CHECK 0; SAMPLE LIPEMIA CHECK 0; SODIUM 135 MEQ/L (136-147); UREA NITROGEN (BUN) 22 mg/dL (9-23)
[2016-08-31 07:15] LABS: POTASSIUM 4.7 MEQ/L (3.7-5.4)
[2016-08-31 08:10] VITALS: BP 134/79
[2016-08-31 10:53] VITALS: BP 129/81
[2016-08-31 15:35] VITALS: BP 117/65
[2016-08-31 19:36] VITALS: BP 122/61
[2016-08-31 23:44] VITALS: BP 116/64
[2016-09-01] VITALS (7 sets, daily range): BP systolic 72–130; BP diastolic 52–70
[2016-09-01 07:04] LABS: HEMATOCRIT 34.9 % (36.0-46.0); MCH 31.4 PG (29.0-34.0); MCHC 31.2 G/DL (30.0-36.0); MCV 100.6 FL (83-99); PLATELET COUNT 485 K/uL (156-360); RBC DIS.WIDTH-CV 16.4 % (11.8-14.6); RBC DIS.WIDTH-SD 60.6 % (39-53); RED BLOOD COUNT 3.47 M/uL (3.80-5.20); WHITE BLOOD COUNT 9.4 K/uL (4.1-10.2)
[2016-09-01 08:48] LABS: ANION GAP 7 MEQ/L (2-14); CHLORIDE 100 MEQ/L (99-109); GFR ESTIMATE (CALCULATED) 59 mL/min/; GLUCOSE 86 mg/dL (70-99); POTASSIUM 4.7 MEQ/L (3.7-5.4); SAMPLE HEMOLYSIS CHECK 0; SAMPLE ICTERIC CHECK 0; SAMPLE LIPEMIA CHECK 0; SODIUM 135 MEQ/L (136-147); UREA NITROGEN (BUN) 22 mg/dL (9-23)
[2016-09-01 16:05] LABS: HEMATOCRIT 35.2 % (36.0-46.0); MCV 100.3 FL (83-99)
[2016-09-02 00:18] LABS: HEMATOCRIT 34.7 % (36.0-46.0)
[2016-09-02 03:49] VITALS: BP 100/55
[2016-09-02 07:50] VITALS: BP 109/62
[2016-09-02 08:27] LABS: HEMATOCRIT 35.7 % (36.0-46.0); MCH 31.2 PG (29.0-34.0); MCHC 31.1 G/DL (30.0-36.0); MCV 100.3 FL (83-99); RBC DIS.WIDTH-CV 16.1 % (11.8-14.6); RBC DIS.WIDTH-SD 60.7 % (39-53); RED BLOOD COUNT 3.56 M/uL (3.80-5.20); WHITE BLOOD COUNT 11.4 K/uL (4.1-10.2)
[2016-09-02 08:51] LABS: ANION GAP 10 MEQ/L (2-14); CHLORIDE 97 MEQ/L (99-109); GFR ESTIMATE (CALCULATED) 32 mL/min/; GLUCOSE 108 mg/dL (70-99); MEAN PLAT.VOLUME 9.6 uM^3 (9.5-12.4); PLAT.SUFFICIENCY ADEQUATE; POTASSIUM 5.1 MEQ/L (3.7-5.4); SAMPLE HEMOLYSIS CHECK 0; SAMPLE ICTERIC CHECK 0; SAMPLE LIPEMIA CHECK 0; SODIUM 130 MEQ/L (136-147); UREA NITROGEN (BUN) 31 mg/dL (9-23)
[2016-09-02 09:17] LABS: PLATELET COUNT 291 K/uL (156-360)
[2016-09-02 12:30] VITALS: BP 116/69
[2016-09-02 15:35] VITALS: BP 112/62
[2016-09-02 15:42] LABS: HEMATOCRIT 34.1 % (36.0-46.0); MCV 99.7 FL (83-99)
[2016-09-02 23:12] LABS: HEMATOCRIT 32.2 % (36.0-46.0); MCV 99.1 FL (83-99)
[2016-09-02 23:25] VITALS: BP 99/58
[2016-09-03 03:48] VITALS: BP 114/59
[2016-09-03 06:21] LABS: HEMATOCRIT 30.4 % (36.0-46.0); MCH 31.6 PG (29.0-34.0); MCHC 31.6 G/DL (30.0-36.0); MEAN PLAT.VOLUME 10.1 uM^3 (9.5-12.4); PLATELET COUNT 270 K/uL (156-360); RBC DIS.WIDTH-CV 15.9 % (11.8-14.6); RBC DIS.WIDTH-SD 58.9 % (39-53); RED BLOOD COUNT 3.04 M/uL (3.80-5.20)
[2016-09-03 06:22] LABS: WHITE BLOOD COUNT 18.6 K/uL (4.1-10.2)
[2016-09-03 06:34] LABS: ANION GAP 9 MEQ/L (2-14); CHLORIDE 95 MEQ/L (99-109); GFR ESTIMATE (CALCULATED) 26 mL/min/; GLUCOSE 108 mg/dL (70-99); POTASSIUM 5.1 MEQ/L (3.7-5.4); SAMPLE HEMOLYSIS CHECK 0; SAMPLE ICTERIC CHECK 0; SAMPLE LIPEMIA CHECK 0; SODIUM 128 MEQ/L (136-147); UREA NITROGEN (BUN) 40 mg/dL (9-23)
[2016-09-03 07:45] VITALS: BP 100/60
[2016-09-03 12:23] VITALS: BP 115/67
[2016-09-03 14:39] LABS: URIC ACID 6.6 mg/dL (3.1-9.2)
[2016-09-03 15:57] VITALS: BP 121/69
[2016-09-03 18:43] VITALS: BP 111/56
[2016-09-03 20:01] LABS: ADD MIUA? YES; BILIRUBIN NEGATIVE; BLOOD LARGE; COLOR AMBER ((YELLOW)); GLUCOSE (STRIP) NEGATIVE; KETONES NEGATIVE; LEUKOCYTES SMALL; NITRITE NEGATIVE; PROTEIN (STRIP) 30; SPECIFIC GRAVITY 1.024 (1.000-1.030); UROBILINOGEN 0.2 MG/DL (0.2-1.0)
[2016-09-03 20:25] LABS: UR CREATININE CONCENTRATION 198.3 MG/DL
[2016-09-03 20:56] LABS: BACTERIA 1+ /HPF; EPITHELIAL CELLS 1+ /HPF; MUCUS RARE /LPF; UCUL ADDED? NO
[2016-09-03 20:57] LABS: FINE GRANULAR CASTS 0-5 /LPF; HYALINE CASTS 0-5 /LPF
[2016-09-03 23:25] VITALS: BP 119/63
[2016-09-04 02:58] VITALS: BP 115/83
[2016-09-04 07:40] VITALS: BP 117/62
[2016-09-04 12:24] VITALS: BP 98/54
[2016-09-04 12:35] LABS: HEMATOCRIT 28.2 % (36.0-46.0); MCH 31.2 PG (29.0-34.0); MCHC 31.2 G/DL (30.0-36.0); PLATELET COUNT 235 K/uL (156-360); RBC DIS.WIDTH-CV 16.1 % (11.8-14.6); RBC DIS.WIDTH-SD 59.8 % (39-53); RED BLOOD COUNT 2.82 M/uL (3.80-5.20); WHITE BLOOD COUNT 13.1 K/uL (4.1-10.2)
[2016-09-04 12:59] LABS: RED BLOOD COUNT 2.82 M/uL (3.80-5.20); WHITE BLOOD COUNT 13.1 K/uL (4.1-10.2)
[2016-09-04 13:00] LABS: HEMATOCRIT 28.2 % (36.0-46.0); MCH 31.2 PG (29.0-34.0); MCHC 31.2 G/DL (30.0-36.0); PLATELET COUNT 235 K/uL (156-360); RBC DIS.WIDTH-CV 16.1 % (11.8-14.6); RBC DIS.WIDTH-SD 59.8 % (39-53)
[2016-09-04 13:18] LABS: ANION GAP 10 MEQ/L (2-14); CHLORIDE 98 MEQ/L (99-109); GFR ESTIMATE (CALCULATED) 32 mL/min/; GLUCOSE 119 mg/dL (70-99); POTASSIUM 4.4 MEQ/L (3.7-5.4); SAMPLE HEMOLYSIS CHECK 0; SAMPLE ICTERIC CHECK 0; SAMPLE LIPEMIA CHECK 0; SODIUM 129 MEQ/L (136-147); UREA NITROGEN (BUN) 37 mg/dL (9-23)
[2016-09-04 13:50] LABS: URIC ACID 6.4 mg/dL (3.1-9.2)
[2016-09-04 15:59] LABS: IRON < 10 MCG/DL (35-150)
[2016-09-04 16:08] VITALS: BP 103/59
[2016-09-04 19:13] VITALS: BP 131/62
[2016-09-05] VITALS (7 sets, daily range): BP systolic 108–119; BP diastolic 51–61
[2016-09-05 07:02] LABS: HEMATOCRIT 27.1 % (36.0-46.0); MEAN PLAT.VOLUME 10.3 uM^3 (9.5-12.4); PLATELET COUNT 231 K/uL (156-360); RBC DIS.WIDTH-CV 16.3 % (11.8-14.6); RBC DIS.WIDTH-SD 59.7 % (39-53); RED BLOOD COUNT 2.71 M/uL (3.80-5.20); WHITE BLOOD COUNT 10.9 K/uL (4.1-10.2)
[2016-09-05 07:37] LABS: ANION GAP 9 MEQ/L (2-14); CHLORIDE 98 MEQ/L (99-109); GFR ESTIMATE (CALCULATED) 37 mL/min/; POTASSIUM 4.5 MEQ/L (3.7-5.4); SAMPLE HEMOLYSIS CHECK 0; SAMPLE ICTERIC CHECK 0; SAMPLE LIPEMIA CHECK 0; SODIUM 130 MEQ/L (136-147); UREA NITROGEN (BUN) 35 mg/dL (9-23)
[2016-09-05 07:39] LABS: GLUCOSE 88 mg/dL (70-99)
[2016-09-06 03:15] VITALS: BP 111/54
[2016-09-06 06:25] LABS: EOSINOPHIL (%) 1.1 % (0-5); EOSINOPHIL COUNT 0.1 K/uL (0-0.3); HEMATOCRIT 26.1 % (36.0-46.0); IMMATURE GRANULOCYTE (%) 0.4 % (0.0-0.7); INSTRUMENT ABS NEUTROPHIL CT 6.2 K/uL; LYMPHOCYTE COUNT 2.6 K/uL (1.0-2.8); MCH 31.4 PG (29.0-34.0); MCHC 31.8 G/DL (30.0-36.0); MCV 98.9 FL (83-99); MEAN PLAT.VOLUME 9.9 uM^3 (9.5-12.4); MONOCYTE (%) 10.6 % (3-12); MONOCYTE COUNT 1.1 K/uL (0-0.8); NEUTROPHIL COUNT 6.2 K/uL (1.8-6.4); PLATELET COUNT 267 K/uL (156-360); RBC DIS.WIDTH-CV 16.1 % (11.8-14.6); RBC DIS.WIDTH-SD 58.6 % (39-53); RED BLOOD COUNT 2.64 M/uL (3.80-5.20)
[2016-09-06 06:48] LABS: ANION GAP 10 MEQ/L (2-14); CHLORIDE 98 MEQ/L (99-109); GFR ESTIMATE (CALCULATED) 40 mL/min/; GLUCOSE 82 mg/dL (70-99); POTASSIUM 4.2 MEQ/L (3.7-5.4); SAMPLE HEMOLYSIS CHECK 0; SAMPLE ICTERIC CHECK 0; SAMPLE LIPEMIA CHECK 0; SODIUM 131 MEQ/L (136-147); UREA NITROGEN (BUN) 33 mg/dL (9-23)
[2016-09-06 08:42] VITALS: BP 106/64
[2016-09-06 11:59] VITALS: BP 110/62
[2016-09-06 15:20] VITALS: BP 108/55
[2016-09-06 19:25] VITALS: BP 113/54
[2016-09-06 23:11] VITALS: BP 121/59
[2016-09-07 03:07] VITALS: BP 120/63
[2016-09-07 06:49] LABS: EOSINOPHIL (%) 1.6 % (0-5); EOSINOPHIL COUNT 0.2 K/uL (0-0.3); HEMATOCRIT 26.4 % (36.0-46.0); IMMATURE GRANULOCYTE (%) 0.6 % (0.0-0.7); IMMATURE GRANULOCYTE COUNT 0.1 K/uL; INSTRUMENT ABS NEUTROPHIL CT 6.7 K/uL; LYMPHOCYTE COUNT 2.4 K/uL (1.0-2.8); MCH 31.4 PG (29.0-34.0); MCHC 31.4 G/DL (30.0-36.0); MEAN PLAT.VOLUME 10.3 uM^3 (9.5-12.4); MONOCYTE (%) 9.7 % (3-12); NEUTROPHIL (%) 64.5 % (45-76); NEUTROPHIL COUNT 6.7 K/uL (1.8-6.4); NRBC (%) 0.2 /100 WBC (0-0); PLATELET COUNT 321 K/uL (156-360); RBC DIS.WIDTH-CV 16.6 % (11.8-14.6); RBC DIS.WIDTH-SD 61.4 % (39-53); RED BLOOD COUNT 2.64 M/uL (3.80-5.20); WHITE BLOOD COUNT 10.4 K/uL (4.1-10.2)
[2016-09-07 07:11] VITALS: BP 108/58
[2016-09-07 07:16] LABS: ANION GAP 8 MEQ/L (2-14); CHLORIDE 98 MEQ/L (99-109); GFR ESTIMATE (CALCULATED) 40 mL/min/; GLUCOSE 80 mg/dL (70-99); POTASSIUM 4.2 MEQ/L (3.7-5.4); SAMPLE HEMOLYSIS CHECK 0; SAMPLE ICTERIC CHECK 0; SAMPLE LIPEMIA CHECK 0; SODIUM 131 MEQ/L (136-147); UREA NITROGEN (BUN) 36 mg/dL (9-23)
[2016-09-07 10:12] LABS: INTER. NORMALIZED RATIO 1.1; PROTHROMBIN TIME 11.2 (9.2-11.2); PTT 33.1 (25-32)
[2016-09-07 11:42] VITALS: BP 113/66
[2016-09-07 16:23] VITALS: BP 114/59
[2016-09-07 19:33] VITALS: BP 132/61
[2016-09-07 23:46] VITALS: BP 105/5
[2016-09-08 03:20] VITALS: BP 90/54
[2016-09-08 04:52] LABS: EOSINOPHIL (%) 2.2 % (0-5); EOSINOPHIL COUNT 0.3 K/uL (0-0.3); HEMATOCRIT 27.5 % (36.0-46.0); IMMATURE GRANULOCYTE (%) 0.8 % (0.0-0.7); IMMATURE GRANULOCYTE COUNT 0.1 K/uL; INSTRUMENT ABS NEUTROPHIL CT 7.9 K/uL; LYMPHOCYTE COUNT 2.7 K/uL (1.0-2.8); MCH 31.3 PG (29.0-34.0); MCHC 31.6 G/DL (30.0-36.0); MCV 98.9 FL (83-99); MEAN PLAT.VOLUME 9.9 uM^3 (9.5-12.4); MONOCYTE (%) 8.8 % (3-12); MONOCYTE COUNT 1.1 K/uL (0-0.8); NEUTROPHIL (%) 65.7 % (45-76); NEUTROPHIL COUNT 7.9 K/uL (1.8-6.4); NRBC (%) 0.3 /100 WBC (0-0); PLATELET COUNT 348 K/uL (156-360); RBC DIS.WIDTH-CV 16.8 % (11.8-14.6); RBC DIS.WIDTH-SD 61.3 % (39-53); RED BLOOD COUNT 2.78 M/uL (3.80-5.20)
[2016-09-08 05:04] LABS: INTER. NORMALIZED RATIO 1.1; PROTHROMBIN TIME 11.3 (9.2-11.2)
[2016-09-08 05:12] LABS: CHLORIDE 101 mEq/L (99-109); POTASSIUM 4.3 mEq/L (3.7-5.4); SODIUM 133 mEq/L (136-147)
[2016-09-08 05:14] LABS: GLUCOSE 88 mg/dL (70-99)
[2016-09-08 05:15] LABS: ANION GAP 10 MEQ/L (2-14)
[2016-09-08 05:18] LABS: GFR ESTIMATE (CALCULATED) 40 mL/min/
[2016-09-08 05:19] LABS: UREA NITROGEN (BUN) 37 mg/dL (9-23)
[2016-09-08 07:56] VITALS: BP 108/59
[2016-09-08 11:20] VITALS: BP 111/62
[2016-09-08 15:48] VITALS: BP 105/54
[2016-09-08 19:59] VITALS: BP 110/59
[2016-09-08 23:14] VITALS: BP 129/62
[2016-09-09] VITALS (7 sets, daily range): BP systolic 92–174; BP diastolic 56–72
[2016-09-09 06:51] LABS: EOSINOPHIL (%) 2.8 % (0-5); EOSINOPHIL COUNT 0.4 K/uL (0-0.3); HEMATOCRIT 27.9 % (36.0-46.0); IMMATURE GRANULOCYTE (%) 1.5 % (0.0-0.7); IMMATURE GRANULOCYTE COUNT 0.2 K/uL; INSTRUMENT ABS NEUTROPHIL CT 7.2 K/uL; LYMPHOCYTE COUNT 4.2 K/uL (1.0-2.8); MCH 30.4 PG (29.0-34.0); MCHC 30.5 G/DL (30.0-36.0); MCV 99.6 FL (83-99); MEAN PLAT.VOLUME 10.3 uM^3 (9.5-12.4); MONOCYTE (%) 7.9 % (3-12); NEUTROPHIL (%) 55.5 % (45-76); NEUTROPHIL COUNT 7.2 K/uL (1.8-6.4); NRBC (%) 0.2 /100 WBC (0-0); PLATELET COUNT 401 K/uL (156-360); RBC DIS.WIDTH-SD 62.4 % (39-53)
[2016-09-09 07:02] LABS: INTER. NORMALIZED RATIO 1.1; PROTHROMBIN TIME 10.9 (9.2-11.2); PTT 35.3 (25-32)
[2016-09-09 07:07] LABS: ANION GAP 8 MEQ/L (2-14); CHLORIDE 98 MEQ/L (99-109); GFR ESTIMATE (CALCULATED) 43 mL/min/; GLUCOSE 84 mg/dL (70-99); POTASSIUM 4.1 MEQ/L (3.7-5.4); SAMPLE HEMOLYSIS CHECK 0; SAMPLE ICTERIC CHECK 0; SAMPLE LIPEMIA CHECK 0; SODIUM 132 MEQ/L (136-147); UREA NITROGEN (BUN) 36 mg/dL (9-23); URIC ACID 7.5 mg/dL (3.1-9.2)
[2016-09-09 11:48] LABS: ADD MIUA? YES; BILIRUBIN NEGATIVE; BLOOD MODERATE; COLOR AMBER ((YELLOW)); GLUCOSE (STRIP) NEGATIVE; KETONES NEGATIVE; LEUKOCYTES MODERATE; NITRITE NEGATIVE; PROTEIN (STRIP) 100; SPECIFIC GRAVITY 1.014 (1.000-1.030); UROBILINOGEN 0.2 MG/DL (0.2-1.0)
[2016-09-09 11:59] LABS: BACTERIA 1+ /HPF; EPITHELIAL CELLS NONE SEEN /HPF; MUCUS TRACE /LPF; RED BLOOD CELLS 40-50 /HPF (0-5); WHITE BLOOD CELLS TNTC /HPF (0-5); WHITE BLOOD CELLS CLUMP MANY /HPF (0-5)
[2016-09-09 16:43] LABS: ADD MIUA? YES; BILIRUBIN NEGATIVE; BLOOD LARGE; COLOR RED ((YELLOW)); GLUCOSE (STRIP) NEGATIVE; KETONES NEGATIVE; LEUKOCYTES SMALL; NITRITE NEGATIVE; PROTEIN (STRIP) 100; SPECIFIC GRAVITY 1.025 (1.000-1.030); UROBILINOGEN 0.2 MG/DL (0.2-1.0)
[2016-09-09 17:01] LABS: UCUL ADDED? YES
[2016-09-09 17:02] LABS: RED BLOOD CELLS 30-40 /HPF (0-5); WHITE BLOOD CELLS TNTC /HPF (0-5)
[2016-09-09 17:03] LABS: BACTERIA 1+ /HPF; EPITHELIAL CELLS NONE SEEN /HPF; MUCUS NONE SEEN /LPF
[2016-09-10 03:54] VITALS: BP 104/57
[2016-09-10 06:42] VITALS: BP 111/57
[2016-09-10 07:15] LABS: EOSINOPHIL (%) 3.4 % (0-5); EOSINOPHIL COUNT 0.4 K/uL (0-0.3); HEMATOCRIT 26.7 % (36.0-46.0); IMMATURE GRANULOCYTE (%) 2.2 % (0.0-0.7); IMMATURE GRANULOCYTE COUNT 0.3 K/uL; INSTRUMENT ABS NEUTROPHIL CT 7.4 K/uL; MCHC 31.1 G/DL (30.0-36.0); MCV 99.6 FL (83-99); MEAN PLAT.VOLUME 10.4 uM^3 (9.5-12.4); MONOCYTE (%) 7.3 % (3-12); MONOCYTE COUNT 0.9 K/uL (0-0.8); NEUTROPHIL (%) 61.6 % (45-76); NEUTROPHIL COUNT 7.4 K/uL (1.8-6.4); NRBC (%) 0.3 /100 WBC (0-0); PLATELET COUNT 412 K/uL (156-360); RBC DIS.WIDTH-CV 17.1 % (11.8-14.6); RBC DIS.WIDTH-SD 61.7 % (39-53); RED BLOOD COUNT 2.68 M/uL (3.80-5.20)
[2016-09-10 07:23] LABS: PTT 32.4 (25-32)
[2016-09-10 07:38] LABS: INTER. NORMALIZED RATIO 1.1; PROTHROMBIN TIME 10.7 (9.2-11.2)
[2016-09-10 07:39] LABS: ANION GAP 9 MEQ/L (2-14); CHLORIDE 98 MEQ/L (99-109); GFR ESTIMATE (CALCULATED) 43 mL/min/; GLUCOSE 99 mg/dL (70-99); POTASSIUM 4.3 MEQ/L (3.7-5.4); SAMPLE HEMOLYSIS CHECK 0; SAMPLE ICTERIC CHECK 0; SAMPLE LIPEMIA CHECK 0; SODIUM 133 MEQ/L (136-147); UREA NITROGEN (BUN) 36 mg/dL (9-23)
[2016-09-10 11:20] VITALS: BP 109/59
[2016-09-10 11:52] LABS: BACTERIA RARE /HPF; EPITHELIAL CELLS RARE /HPF; MUCUS NONE SEEN /LPF; RED BLOOD CELLS 20-30 /HPF (0-5); WHITE BLOOD CELLS TNTC /HPF (0-5); WHITE BLOOD CELLS CLUMP FEW /HPF (0-5)
[2016-09-10 16:01] VITALS: BP 105/56
[2016-09-10 16:50] LABS: EOSINOPHIL (%) 2.4 % (0-5); EOSINOPHIL COUNT 0.3 K/uL (0-0.3); HEMATOCRIT 26.5 % (36.0-46.0); IMMATURE GRANULOCYTE (%) 2.1 % (0.0-0.7); IMMATURE GRANULOCYTE COUNT 0.3 K/uL; INSTRUMENT ABS NEUTROPHIL CT 8.6 K/uL; LYMPHOCYTE COUNT 3.3 K/uL (1.0-2.8); MCH 31.1 PG (29.0-34.0); MCHC 31.3 G/DL (30.0-36.0); MCV 99.3 FL (83-99); MEAN PLAT.VOLUME 9.6 uM^3 (9.5-12.4); MONOCYTE (%) 7.2 % (3-12); NEUTROPHIL (%) 63.6 % (45-76); NEUTROPHIL COUNT 8.6 K/uL (1.8-6.4); NRBC (%) 0.1 /100 WBC (0-0); PLATELET COUNT 427 K/uL (156-360); RBC DIS.WIDTH-SD 61.4 % (39-53); RED BLOOD COUNT 2.67 M/uL (3.80-5.20); WHITE BLOOD COUNT 13.5 K/uL (4.1-10.2)
[2016-09-10 20:20] VITALS: BP 100/55
[2016-09-10 23:05] VITALS: BP 105/57
[2016-09-11 04:15] VITALS: BP 107/55
[2016-09-11 06:06] LABS: EOSINOPHIL (%) 2.8 % (0-5); EOSINOPHIL COUNT 0.4 K/uL (0-0.3); IMMATURE GRANULOCYTE (%) 2.5 % (0.0-0.7); IMMATURE GRANULOCYTE COUNT 0.3 K/uL; INSTRUMENT ABS NEUTROPHIL CT 7.4 K/uL; LYMPHOCYTE COUNT 3.5 K/uL (1.0-2.8); MCH 31.1 PG (29.0-34.0); MCHC 31.5 G/DL (30.0-36.0); MCV 98.9 FL (83-99); MEAN PLAT.VOLUME 9.6 uM^3 (9.5-12.4); MONOCYTE (%) 8.4 % (3-12); MONOCYTE COUNT 1.1 K/uL (0-0.8); NEUTROPHIL (%) 58.5 % (45-76); NEUTROPHIL COUNT 7.4 K/uL (1.8-6.4); NRBC (%) 0.2 /100 WBC (0-0); PLATELET COUNT 474 K/uL (156-360); RBC DIS.WIDTH-CV 17.1 % (11.8-14.6); RED BLOOD COUNT 2.73 M/uL (3.80-5.20); WHITE BLOOD COUNT 12.7 K/uL (4.1-10.2)
[2016-09-11 06:16] LABS: INTER. NORMALIZED RATIO 1.1; PROTHROMBIN TIME 10.7 (9.2-11.2); PTT 42.4 (25-32)
[2016-09-11 06:25] LABS: ANION GAP 9 MEQ/L (2-14); CHLORIDE 98 MEQ/L (99-109); GFR ESTIMATE (CALCULATED) 48 mL/min/; GLUCOSE 95 mg/dL (70-99); POTASSIUM 4.2 MEQ/L (3.7-5.4); SAMPLE HEMOLYSIS CHECK 0; SAMPLE ICTERIC CHECK 0; SAMPLE LIPEMIA CHECK 0; SODIUM 133 MEQ/L (136-147); UREA NITROGEN (BUN) 35 mg/dL (9-23); URIC ACID 7.6 mg/dL (3.1-9.2)
[2016-09-11 07:40] VITALS: BP 109/68
[2016-09-11 09:03] LABS: ADD MIUA? YES; BILIRUBIN NEGATIVE; BLOOD LARGE; GLUCOSE (STRIP) NEGATIVE; KETONES NEGATIVE; LEUKOCYTES MODERATE; NITRITE NEGATIVE; PROTEIN (STRIP) 100; SPECIFIC GRAVITY 1.017 (1.000-1.030); UROBILINOGEN 0.2 MG/DL (0.2-1.0)
[2016-09-11 09:05] LABS: COLOR AMBER ((YELLOW))
[2016-09-11 09:18] LABS: OTHER SC; RED BLOOD CELLS TNTC /HPF (0-5); WHITE BLOOD CELLS TNTC /HPF (0-5)
[2016-09-11 11:20] VITALS: BP 98/63
[2016-09-11 16:15] VITALS: BP 127/69
[2016-09-11 18:38] LABS: EOSINOPHIL (%) 1.8 % (0-5); EOSINOPHIL COUNT 0.3 K/uL (0-0.3); HEMATOCRIT 28.6 % (36.0-46.0); IMMATURE GRANULOCYTE (%) 2.1 % (0.0-0.7); IMMATURE GRANULOCYTE COUNT 0.3 K/uL; INSTRUMENT ABS NEUTROPHIL CT 9.3 K/uL; LYMPHOCYTE COUNT 3.1 K/uL (1.0-2.8); MCHC 31.1 G/DL (30.0-36.0); MCV 99.7 FL (83-99); MEAN PLAT.VOLUME 9.4 uM^3 (9.5-12.4); MONOCYTE (%) 7.5 % (3-12); MONOCYTE COUNT 1.1 K/uL (0-0.8); NEUTROPHIL (%) 66.2 % (45-76); NEUTROPHIL COUNT 9.3 K/uL (1.8-6.4); NRBC (%) 0.1 /100 WBC (0-0); PLATELET COUNT 476 K/uL (156-360); RBC DIS.WIDTH-CV 17.1 % (11.8-14.6); RBC DIS.WIDTH-SD 61.9 % (39-53); RED BLOOD COUNT 2.87 M/uL (3.80-5.20)
[2016-09-11 19:17] VITALS: BP 114/55
[2016-09-11 23:50] VITALS: BP 105/57
[2016-09-12 03:17] LABS: EOSINOPHIL (%) 2.7 % (0-5); EOSINOPHIL COUNT 0.3 K/uL (0-0.3); HEMATOCRIT 26.7 % (36.0-46.0); IMMATURE GRANULOCYTE (%) 2.2 % (0.0-0.7); IMMATURE GRANULOCYTE COUNT 0.3 K/uL; INSTRUMENT ABS NEUTROPHIL CT 7.7 K/uL; LYMPHOCYTE COUNT 3.3 K/uL (1.0-2.8); MCHC 31.5 G/DL (30.0-36.0); MCV 98.5 FL (83-99); MEAN PLAT.VOLUME 9.8 uM^3 (9.5-12.4); MONOCYTE (%) 7.7 % (3-12); NEUTROPHIL COUNT 7.7 K/uL (1.8-6.4); PLATELET COUNT 460 K/uL (156-360); RBC DIS.WIDTH-CV 17.3 % (11.8-14.6); RBC DIS.WIDTH-SD 62.8 % (39-53); RED BLOOD COUNT 2.71 M/uL (3.80-5.20); WHITE BLOOD COUNT 12.7 K/uL (4.1-10.2)
[2016-09-12 03:20] VITALS: BP 104/56
[2016-09-12 03:35] LABS: CHLORIDE 100 mEq/L (99-109); POTASSIUM 4.5 mEq/L (3.7-5.4); SODIUM 133 mEq/L (136-147)
[2016-09-12 03:37] LABS: GLUCOSE 107 mg/dL (70-99)
[2016-09-12 03:38] LABS: ANION GAP 10 MEQ/L (2-14)
[2016-09-12 03:41] LABS: GFR ESTIMATE (CALCULATED) 48 mL/min/
[2016-09-12 03:42] LABS: UREA NITROGEN (BUN) 36 mg/dL (9-23)
[2016-09-12 07:19] VITALS: BP 102/63
[2016-09-12 10:31] LABS: INTER. NORMALIZED RATIO 1.1; PROTHROMBIN TIME 10.8 (9.2-11.2); PTT 39.9 (25-32)
[2016-09-12 12:12] VITALS: BP 104/58
[2016-09-12 14:25] LABS: WHITE BLOOD CELLS TNTC /HPF (0-5)
[2016-09-12 15:39] VITALS: BP 101/61
[2016-09-12 19:12] VITALS: BP 95/53
[2016-09-12 23:15] VITALS: BP 118/56
[2016-09-13 01:21] LABS: INTER. NORMALIZED RATIO 1.1; PROTHROMBIN TIME 10.9 (9.2-11.2); PTT 46.2 (25-32)
[2016-09-13 01:24] LABS: CHLORIDE 98 mEq/L (99-109); POTASSIUM 4.3 mEq/L (3.7-5.4); SODIUM 132 mEq/L (136-147)
[2016-09-13 01:26] LABS: GLUCOSE 120 mg/dL (70-99)
[2016-09-13 01:28] LABS: ANION GAP 10 MEQ/L (2-14)
[2016-09-13 01:30] LABS: GFR ESTIMATE (CALCULATED) 48 mL/min/
[2016-09-13 01:31] LABS: UREA NITROGEN (BUN) 36 mg/dL (9-23)
[2016-09-13 03:10] VITALS: BP 106/58
[2016-09-13 07:38] LABS: INTER. NORMALIZED RATIO 1.1; PROTHROMBIN TIME 11.2 (9.2-11.2)
[2016-09-13 07:42] LABS: EOSINOPHIL (%) 2.4 % (0-5); EOSINOPHIL COUNT 0.3 K/uL (0-0.3); HEMATOCRIT 26.3 % (36.0-46.0); IMMATURE GRANULOCYTE (%) 1.5 % (0.0-0.7); IMMATURE GRANULOCYTE COUNT 0.2 K/uL; INSTRUMENT ABS NEUTROPHIL CT 7.8 K/uL; LYMPHOCYTE COUNT 3.6 K/uL (1.0-2.8); MCH 30.8 PG (29.0-34.0); MCHC 30.8 G/DL (30.0-36.0); MONOCYTE (%) 7.9 % (3-12); NEUTROPHIL COUNT 7.8 K/uL (1.8-6.4); NRBC (%) 0.2 /100 WBC (0-0); PLATELET COUNT 478 K/uL (156-360); RBC DIS.WIDTH-CV 17.1 % (11.8-14.6); RBC DIS.WIDTH-SD 62.4 % (39-53); RED BLOOD COUNT 2.63 M/uL (3.80-5.20)
[2016-09-13 07:55] VITALS: BP 106/63
[2016-09-13 07:57] LABS: ANION GAP 10 MEQ/L (2-14); CHLORIDE 97 MEQ/L (99-109); GFR ESTIMATE (CALCULATED) 48 mL/min/; GLUCOSE 90 mg/dL (70-99); POTASSIUM 4.4 MEQ/L (3.7-5.4); SAMPLE HEMOLYSIS CHECK 0; SAMPLE ICTERIC CHECK 0; SAMPLE LIPEMIA CHECK 0; SODIUM 134 MEQ/L (136-147); UREA NITROGEN (BUN) 34 mg/dL (9-23)
[2016-09-13 09:20] VITALS: BP 164/68
[2016-09-13 09:37] LABS: PTT 82.9 (25-32)
[2016-09-13] MEDS ORDERED: LETROZOLE2.5 MG PO (12:00)
[2016-09-13] MEDS ORDERED: ELIQUIS5 MG PO (12:01)
[2016-09-13] MEDS ORDERED: FUROSEMIDE80 MG PO (12:03)
[2016-09-13 12:31] VITALS: BP 111/57
== END 2016-09-13 16:50 | disposition home health service (06) | DRG 853 ==
LOC: EME → EDBD 17:37 → EDOF 08-13 00:05 → 2EAST 08-13 00:05
PROVIDERS: Emergency Medicine; Family Medicine; Hospitalist; Internal Medicine; Internal Medicine Cardiovascular Disease; Internal Medicine Hematology & Oncology; Internal Medicine Nephrology; Nurse Practitioner Family; Student in an Organized Health Care Education/Training Program; Urology
PROC: 0T578ZZ Destruction of Left Ureter, Via Natural or Artificial Opening Endoscopic (ICD-10-PCS; principal; 2016-08-29)
PROC: BT1F1ZZ Fluoroscopy of Left Kidney, Ureter and Bladder using Low Osmolar Contrast (ICD-10-PCS; principal; 2016-08-29)
PROC: 02HV33Z Insertion of Infusion Device into Superior Vena Cava, Percutaneous Approach (ICD-10-PCS; 2016-09-02)
PROC: B548ZZA Ultrasonography of Superior Vena Cava, Guidance (ICD-10-PCS; 2016-09-02)
DX: A41.52 Sepsis due to Pseudomonas (principal); T83.012A Breakdown (mechanical) of nephrostomy catheter, initial encounter; N17.0 Acute kidney failure with tubular necrosis; C79.81 Secondary malignant neoplasm of breast; N99.520 Hemorrhage of incontinent external stoma of urinary tract; N99.71 Accidental puncture and laceration of a genitourinary system organ or structure during a genitourinary system procedure; C81.90 Hodgkin lymphoma, unspecified, unspecified site; N39.0 Urinary tract infection, site not specified; S30.1XXA Contusion of abdominal wall, initial encounter; I10 Essential (primary) hypertension; E03.9 Hypothyroidism, unspecified; C50.919 Malignant neoplasm of unspecified site of unspecified female breast; D63.8 Anemia in other chronic diseases classified elsewhere; C80.1 Malignant (primary) neoplasm, unspecified; F32.9 Major depressive disorder, single episode, unspecified; B96.20 Unspecified Escherichia coli [E. coli] as the cause of diseases classified elsewhere; C54.1 Malignant neoplasm of endometrium; I87.2 Venous insufficiency (chronic) (peripheral); B96.5 Pseudomonas (aeruginosa) (mallei) (pseudomallei) as the cause of diseases classified elsewhere; R00.0 Tachycardia, unspecified; K57.90 Diverticulosis of intestine, part unspecified, without perforation or abscess without bleeding; I87.8 Other specified disorders of veins; Z85.42 Personal history of malignant neoplasm of other parts of uterus; Z90.710 Acquired absence of both cervix and uterus; Z86.711 Personal history of pulmonary embolism; Z86.718 Personal history of other venous thrombosis and embolism; Z79.1 Long term (current) use of non-steroidal anti-inflammatories (NSAID)
CPT/HCPCS: 50431; 50433; 71010; 74150; 74176; 74430; 76770; 80048; 80048 91; 80053; 80069; 80076; 81003; 81015; 82436; 82570; 82607; 83540; 83605; 83735; 83921 90; 83935; 84300; 84443; 84466; 84550; 84999; 85014; 85018; 85025; 85025 91; 85027; 85045; 85610; 85730; 86850; 86900; 86901; 87040; 87077; 87086; 87186; 93005; 93306; 94010; 94799; 97530 GO; 97530 GP; 99281; 99285; C1769; J0692; J0744; J1200; J1650; J1756; J1940; J2405; J2997; J3010; J7030; J7040; J7050; J7120; P9047

== ENCOUNTER → 2016-10-03 | Outpatient (CLI) | payer OTHER ==
[~2016-10-03] MED LIST changes: +CARDIZEM60 MG PO; +DULCOLAX10 MG PR; +ELIQUIS5 MG PO; +FENTANYL1 EAC4 TD; +FLEET ENEMA-AD118 ML PR; +FUROSEMIDE80 MG PO; +LETROZOLE2.5 MG PO; +LOTEMAX5 ML BOTH EYES; +LOVENOX100 MG/1 M SC; +ONDANSETRON HCL4 MG PO; +ROXICODONE5 MG PO; +TYLENOL EXTRA500 MG PO; +TYLENOL REGULA325 MG PO
== END | disposition home or self-care (01) ==
LOC: RAD 09-28 14:30 → EDSTATUS 09-28 14:30 → RAD 10-02 15:00
DX: N32.9 Bladder disorder, unspecified (principal); R93.41 Abnormal radiologic findings on diagnostic imaging of renal pelvis, ureter, or bladder
CPT/HCPCS: 74430

== ENCOUNTER 2016-11-30 09:40 | Day surgery (SDC) | payer OTHER ==
[~2016-11-30] VITALS: Ht 165.1 cm; Wt 71.7 kg
[~2016-11-30 09:40] MED LIST changes: +DAILY MULTIPLE1 EACH PO
[2016-11-30 10:06] VITALS: BP 138/81
[2016-11-30 20:59] VITALS: BP 126/73
[2016-11-30 23:23] VITALS: BP 100/55
[2016-12-01 03:56] VITALS: BP 102/58
[2016-12-01 07:48] VITALS: BP 123/67
[2016-12-01] MEDS ORDERED: NORCO 5/3251 TABLET PO (10:28)
[2016-12-01 11:37] VITALS: BP 141/74
== END 2016-12-01 12:09 | disposition home or self-care (01) ==
LOC: SDC 09:40 → NUC 11:30 → SDC 11:30 → 2EASTP 16:32 → 2SOUTH 16:32 → 2EASTP 20:54
DX: C50.412 Malignant neoplasm of upper-outer quadrant of left female breast (principal); C77.3 Secondary and unspecified malignant neoplasm of axilla and upper limb lymph nodes; Z17.0 Estrogen receptor positive status [ER+]; Z85.71 Personal history of Hodgkin lymphoma; Z85.42 Personal history of malignant neoplasm of other parts of uterus; I10 Essential (primary) hypertension; Z86.718 Personal history of other venous thrombosis and embolism; Z86.711 Personal history of pulmonary embolism; Z79.01 Long term (current) use of anticoagulants; E03.9 Hypothyroidism, unspecified; R73.03 Prediabetes; D50.9 Iron deficiency anemia, unspecified; Z90.710 Acquired absence of both cervix and uterus; Z80.49 Family history of malignant neoplasm of other genital organs; Z80.0 Family history of malignant neoplasm of digestive organs; Z92.21 Personal history of antineoplastic chemotherapy; Z92.3 Personal history of irradiation; K21.9 Gastro-esophageal reflux disease without esophagitis; K57.30 Diverticulosis of large intestine without perforation or abscess without bleeding; D47.3 Essential (hemorrhagic) thrombocythemia; N28.9 Disorder of kidney and ureter, unspecified; Z88.1 Allergy status to other antibiotic agents; Z91.041 Radiographic dye allergy status; Z90.81 Acquired absence of spleen
CPT/HCPCS: 78195; 78999; 88305; 88309; A9541; G0378; J0131; J0690; J1100; J1170; J2250; J2405; J2765; J3010; J7120

== ENCOUNTER 2017-02-10 19:19 | Inpatient (IN) | payer OTHER ==
[~2017-02-10] VITALS: Ht 162.6 cm; Wt 80.4 kg
[~2017-02-10 19:19] MED LIST changes: -LOTEMAX5 ML BOTH EYES; +NORCO 5/3251 TABLET PO
[2017-02-10 20:39] LABS: EOSINOPHIL (%) 1.7 % (0-5); EOSINOPHIL COUNT 0.1 K/uL (0-0.3); HEMATOCRIT 37.9 % (36.0-46.0); IMMATURE GRANULOCYTE (%) 0.4 % (0.0-0.7); INSTRUMENT ABS NEUTROPHIL CT 5.5 K/uL; LYMPHOCYTE COUNT 1.3 K/uL (1.0-2.8); MCH 27.7 PG (29.0-34.0); MCHC 30.9 G/DL (30.0-36.0); MCV 89.6 FL (83-99); MEAN PLAT.VOLUME 10.4 uM^3 (9.5-12.4); MONOCYTE (%) 6.2 % (3-12); MONOCYTE COUNT 0.5 K/uL (0-0.8); NEUTROPHIL (%) 74.3 % (45-76); NEUTROPHIL COUNT 5.5 K/uL (1.8-6.4); PLATELET COUNT 398 K/uL (156-360); RBC DIS.WIDTH-CV 18.6 % (11.8-14.6); RBC DIS.WIDTH-SD 61.2 % (39-53); RED BLOOD COUNT 4.23 M/uL (3.80-5.20); WHITE BLOOD COUNT 7.5 K/uL (4.1-10.2)
[2017-02-10 20:57] LABS: INTER. NORMALIZED RATIO 1.4; PROTHROMBIN TIME 15.3 SEC (10.2-12.9)
[2017-02-10 21:29] LABS: ALKALINE PHOSPHATASE 137 IU/L (3-129); ANION GAP 14 MEQ/L (2-14); CHLORIDE 98 MEQ/L (99-109); GFR ESTIMATE (CALCULATED) 26 mL/min/; GLUCOSE 167 mg/dL (70-99); POTASSIUM 4.5 MEQ/L (3.7-5.4); SAMPLE HEMOLYSIS CHECK 0; SAMPLE ICTERIC CHECK 0; SAMPLE LIPEMIA CHECK 0; SODIUM 137 MEQ/L (136-147); TOTAL BILIRUBIN 0.3 MG/DL (0.0-1.0); UREA NITROGEN (BUN) 43 mg/dL (9-23)
[2017-02-10] MEDS ORDERED: FEMARA2.5 MG PO (22:42)
[2017-02-10] MEDS ORDERED: FUROSEMIDE40 MG PO (22:42)
[2017-02-10] MEDS ORDERED: LOPRESSOR25 MG PO (22:44)
[2017-02-11] VITALS (7 sets, daily range): BP systolic 100–157; BP diastolic 52–74
[2017-02-11 02:40] LABS: ADD MIUA? YES; BILIRUBIN NEGATIVE; BLOOD LARGE; COLOR YELLOW ((YELLOW)); GLUCOSE (STRIP) NEGATIVE; KETONES NEGATIVE; LEUKOCYTES SMALL; NITRITE NEGATIVE; PROTEIN (STRIP) 30; SPECIFIC GRAVITY 1.012 (1.000-1.030); UROBILINOGEN 0.2 MG/DL (0.2-1.0)
[2017-02-11 02:47] LABS: BACTERIA 3+ /HPF; EPITHELIAL CELLS RARE /HPF; HYALINE CASTS 0-5 /LPF; MUCUS NONE SEEN /LPF; RED BLOOD CELLS TNTC /HPF (0-5); UCUL ADDED? YES
[2017-02-11 02:55] LABS: METH RESISTANT S AUREUS PCR POSITIVE (NEGATIVE)
[2017-02-11 02:57] LABS: PROBE CHECK PASS
[2017-02-11 06:07] LABS: ANION GAP 10 MEQ/L (2-14); CHLORIDE 103 MEQ/L (99-109); GFR ESTIMATE (CALCULATED) 28 mL/min/; POTASSIUM 4.7 MEQ/L (3.7-5.4); SAMPLE HEMOLYSIS CHECK 0; SAMPLE ICTERIC CHECK 0; SAMPLE LIPEMIA CHECK 0; SODIUM 142 MEQ/L (136-147); UREA NITROGEN (BUN) 40 mg/dL (9-23)
[2017-02-11 06:15] LABS: GLUCOSE 110 mg/dL (70-99)
[2017-02-11 06:16] LABS: MCH 28.1 PG (29.0-34.0); MEAN PLAT.VOLUME 10.4 uM^3 (9.5-12.4); PLATELET COUNT 387 K/uL (156-360); RBC DIS.WIDTH-CV 18.7 % (11.8-14.6); RBC DIS.WIDTH-SD 64.9 % (39-53); RED BLOOD COUNT 4.05 M/uL (3.80-5.20)
[2017-02-11 06:17] LABS: MCV 93.8 FL (83-99)
[2017-02-12 04:18] VITALS: BP 98/54
[2017-02-12 08:20] VITALS: BP 117/59
[2017-02-12 12:00] VITALS: BP 94/52
[2017-02-12 17:00] VITALS: BP 100/50
[2017-02-12 18:35] LABS: UR CREATININE CONCENTRATION 130.9 MG/DL
[2017-02-12 18:59] VITALS: BP 115/57
[2017-02-12 22:20] VITALS: BP 100/60
[2017-02-13] VITALS (9 sets, daily range): BP systolic 105–133; BP diastolic 55–84
[2017-02-13 04:48] LABS: EOSINOPHIL (%) 0.8 % (0-5); EOSINOPHIL COUNT 0.1 K/uL (0-0.3); HEMATOCRIT 39.8 % (36.0-46.0); IMMATURE GRANULOCYTE (%) 0.5 % (0.0-0.7); IMMATURE GRANULOCYTE COUNT 0.1 K/uL; INSTRUMENT ABS NEUTROPHIL CT 5.9 K/uL; LYMPHOCYTE COUNT 2.2 K/uL (1.0-2.8); MCH 27.3 PG (29.0-34.0); MCHC 28.4 G/DL (30.0-36.0); MCV 96.1 FL (83-99); MEAN PLAT.VOLUME 10.5 uM^3 (9.5-12.4); MONOCYTE (%) 10.4 % (3-12); NEUTROPHIL (%) 63.7 % (45-76); NEUTROPHIL COUNT 5.9 K/uL (1.8-6.4); PLATELET COUNT 353 K/uL (156-360); RBC DIS.WIDTH-SD 67.8 % (39-53); RED BLOOD COUNT 4.14 M/uL (3.80-5.20); WHITE BLOOD COUNT 9.2 K/uL (4.1-10.2)
[2017-02-13 05:05] LABS: CHLORIDE 102 mEq/L (99-109); SODIUM 137 mEq/L (136-147)
[2017-02-13 05:08] LABS: GLUCOSE 106 mg/dL (70-99)
[2017-02-13 05:09] LABS: ANION GAP 14 MEQ/L (2-14); TOTAL BILIRUBIN 0.3 mg/dL (0.0-1.0)
[2017-02-13 05:11] LABS: ALKALINE PHOSPHATASE 106 IU/L (3-129); GFR ESTIMATE (CALCULATED) 21 mL/min/
[2017-02-13 05:12] LABS: UREA NITROGEN (BUN) 48 mg/dL (9-23)
[2017-02-13 05:13] LABS: DIRECT BILIRUBIN 0.1 mg/dL (0.0-0.3)
[2017-02-13 05:27] LABS: POTASSIUM 5.8 mEq/L (3.7-5.4)
[2017-02-13 10:24] LABS: POINT-OF-CARE METER ID UU13113698
[2017-02-13 11:01] LABS: POINT-OF-CARE METER ID UU13113698
[2017-02-13 11:39] LABS: CREATINE KINASE 78 IU/L (1-294)
[2017-02-13 12:27] LABS: BASE EXCESS 2.1 mEq/L (-3 to +3); BICARBONATE 30.9 mEq/L (22-26); CARBOXY HGB 1.1 % (0-5); COMMENTS - BLOOD GASES +C; DEVICE NC; METHEMOGLOBIN 1.7 % (0-1.5); O2 FLOW 6 L/MIN; PCO2 72 mm Hg (35-45); PO2 96 mm Hg (80-100); SITE RR +A; TOTAL RESP RATE 16 resp/min; pH 7.24 (7.35-7.45)
[2017-02-13 15:44] LABS: METH RESISTANT S AUREUS PCR NEGATIVE (NEGATIVE)
[2017-02-13 15:47] LABS: PROBE CHECK PASS; SPECIMEN PROCESSING CONTROL PASS
[2017-02-14] VITALS (7 sets, daily range): BP systolic 105–143; BP diastolic 55–71
[2017-02-15 06:17] LABS: POINT-OF-CARE METER ID UU13113774
== END 2017-02-17 11:57 | DRG 542 ==
LOC: EME → EDBD 19:19 → EME 19:19 → EDOF 23:19 → ENRESERV 23:20 → 4EAST 02-11 01:01 → ENRESERV 02-13 12:38 → 4WEST 02-13 13:20 → ENRESERV 02-13 16:10 → 4WEST 02-13 16:10 → CANRESERV 02-13 16:10 → ENRESERV 02-14 11:51 → 5EAST 02-14 19:32
PROVIDERS: Emergency Medicine; Hospitalist; Internal Medicine; Internal Medicine Critical Care Medicine
PROC: 5A09357 Assistance with Respiratory Ventilation, Less than 24 Consecutive Hours, Continuous Positive Airway Pressure (ICD-10-PCS; principal; 2017-02-10)
DX: M84.451A Pathological fracture, right femur, initial encounter for fracture (principal); Z51.5 Encounter for palliative care; J96.01 Acute respiratory failure with hypoxia; G93.40 Encephalopathy, unspecified; C78.01 Secondary malignant neoplasm of right lung; C78.02 Secondary malignant neoplasm of left lung; N17.9 Acute kidney failure, unspecified; E03.9 Hypothyroidism, unspecified; E87.5 Hyperkalemia; N18.9 Chronic kidney disease, unspecified; C50.912 Malignant neoplasm of unspecified site of left female breast; R64 Cachexia; N39.0 Urinary tract infection, site not specified; D50.9 Iron deficiency anemia, unspecified; R60.0 Localized edema; C55 Malignant neoplasm of uterus, part unspecified; J91.0 Malignant pleural effusion; I12.9 Hypertensive chronic kidney disease with stage 1 through stage 4 chronic kidney disease, or unspecified chronic kidney disease; Z66 Do not resuscitate; E87.2 Acidosis; E86.9 Volume depletion, unspecified; I87.2 Venous insufficiency (chronic) (peripheral); J45.909 Unspecified asthma, uncomplicated; I05.0 Rheumatic mitral stenosis; E87.70 Fluid overload, unspecified; Z90.10 Acquired absence of unspecified breast and nipple; Z90.710 Acquired absence of both cervix and uterus; Z92.21 Personal history of antineoplastic chemotherapy; Z87.442 Personal history of urinary calculi; Z79.01 Long term (current) use of anticoagulants; Z68.26 Body mass index [BMI] 26.0-26.9, adult; Z85.71 Personal history of Hodgkin lymphoma; Z86.711 Personal history of pulmonary embolism; Z86.718 Personal history of other venous thrombosis and embolism
CPT/HCPCS: 36600; 71010; 71250; 73502; 73552; 76770; 80048; 80053; 80076; 80202; 81003; 82436; 82550; 82565; 82570; 82803; 82948; 83605; 83880; 84100; 84300; 84540; 85025; 85027; 85610; 85730; 87040; 87077; 87086; 87186; 87641; 93005; 94010; 94640; 94640 76; 94760; 94799; 99202; 99281; 99285; G0378; J0456; J1815; J1940; J2270; J2405; J2543; J3370; J7030; J7050; P9047